=== PATIENT | male | born 1970 | race Caucasian/White ===

== ENCOUNTER 2017-07-08 10:09 | Inpatient (IN) ==
[2017-07-08] MEDS ORDERED: *HR* HYDROcodone/Acet 5/325 mg TABLET PO PRN (13:26)
[2017-07-08] MEDS ORDERED: Naloxone 0.4 MG/ML INJ IVP PRN (13:26)
[2017-07-08] MEDS ORDERED: *HR* Morphine 2 MG/ML SYRINGE IVP PRN (13:26)
[2017-07-08] MEDS ORDERED: Ondansetron 4 MG/2 ML VIAL IVP PRN (13:26)
[2017-07-08] MEDS ORDERED: Acetaminophen 325 MG TABLET PO PRN (13:26)
[2017-07-08 13:40] LABS: Basophils # 0.1 K/mcL (0.0-0.2); Basophils % 0.7 %; Eosinophils % 0.3 %; Hematocrit 45.4 % (37.5-50.1); Hemoglobin 15.3 g/dL (12.9-16.9); Immature Granulocytes % 0.3 % (0-4); Lymphocytes # 1.9 K/mcL (0.6-4.6); Lymphocytes % 28.5 %; Mean Corpuscular HGB Conc 33.7 g/dL (31.6-35.5); Mean Corpuscular Hemoglobin 30.2 pg (28.0-33.3); Mean Corpuscular Volume 89.5 fL (83.0-100.0); Mean Platelet Volume 10.8 fL (9.4-12.4); Monocytes # 0.5 K/mcL (0.0-1.3); Monocytes % 6.8 %; Neutrophils # 4.3 K/mcL (1.6-8.9); Platelet Count 219 K/mcL (140-400); Red Blood Count 5.07 M/mcL (4.19-5.50); Red Cell Distribution Width 12.9 % (11.5-14.5); Segmented Neutrophils % 63.4 %
[2017-07-08] MEDS ORDERED: Nitroglycerin 0.4 MG TAB.SUBL SL PRN (13:40)
--- NOTE | 2017-07-08 13:49 | Internal Med History&Physical ---
<Omar Barnhart - Last Filed: 07/08/17 18:08> Date of Encounter: 07/08/17 Time of Encounter: 13:00 Assessment and Plan (1) Chest pain Current visit: Yes Status: Acute Patient presents with left-sided CP that he states began this morning while he was at rest at work. Describes sharp, stabbing pain that radiated to his left shoulder blade and arm causing arm to go numb (now resolved). On examination, patient denies current CP or SOB. Patient has hx of MIs x6 and stent placement x6. ICD placed by Dr. Rojas in 07/2016. Last cardiac work-up done in 2015 prior to ICD placement. EKG today is unchaged from 04/02/17 and shows sinus rhythm with possible inferior myocardial infarction (probably old), moderate T- wave abnormality (consider anterolateral ischemia). Heparin drip started. Continuous cardiac telemetry. Aspirin therapy. Initial troponin here was 0.14. Trend troponins x2. Echocardiogram ordered. Cardiology consult placed. Qualifiers: Chest pain type: other chest pain Qualified Code(s): R07.89 - Other chest pain; R07.8 - Other chest pain (2) Elevated troponin Current visit: Yes Status: Acute Initial troponin here on admission is 0.14. Patient states troponin at [facility] prior to transfer was 0.11. Will trend troponins x2. Patient denies SOB or CP on examination and denies any distress. Heparin drip started. Continuous cardiac telemetry. SL Nitroglycerin PRN. Continue aspirin therapy daily. (3) SVT (supraventricular tachycardia) Current visit: Yes Status: Acute Patient presents with report of HR of 140-150 bpm this morning while resting at work. SVT versus atrial fibrillation. Continue metoprolol and increase from 50 mg to 75 mg and hold lisinopril per cardiology due to current hypotension and to allow for increase in metoprolol dosing. Monitor via continuous telemetry. (4) Dizziness Current visit: Yes Status: Acute Patient reports dizziness with positional changes. Orthostatic BPs and VS ordered. Falls/safety precautions ordered and discussed with patient who confirmed understanding. (5) Tobacco abuse counseling Current visit: Yes Status: Acute Patient currently smokes 1 PPD. Refused nicotine patch. Patient counseled >10 minutes regarding the dangers of tobacco on his current health status, especially his hx of MIs x6 and current CP. Methods for quitting also discussed. Patient verified understanding and expressed interest in quitting due to his current health status. (6) HTN (hypertension) Current visit: Yes Status: Chronic Hx of chronic HLD. Lipid panel ordered in a.m. labs. Continue Lipitor. Qualifiers: Hypertension type: essential hypertension Qualified Code(s): I10 - Essential (primary) hypertension (7) HLD (hyperlipidemia) Current visit: Yes Status: Chronic Hx of chronic HTN. Monitor patient and VS and continue patient's lisinopril, Imdur, and Coreg. Qualifiers: Hyperlipidemia type: pure hypercholesterolemia Qualified Code(s): E78.00 - Pure hypercholesterolemia, unspecified; E78.0 - Pure hypercholesterolemia (8) CAD (coronary artery disease) Current visit: Yes Status: Chronic Hx of CAD. Patient on continuous cardiac telemetry. Will continue lisinopril, Imdur, Plavix, Coreg, Lipitor, and aspirin therapy. Qualifiers: Coronary Disease-Associated Artery/Lesion type: [place] artery [place] vs. transplanted heart: [place] heart Associated angina: without angina Qualified Code(s): I25.10 - Atherosclerotic heart disease of [place] coronary artery without angina pectoris (9) Ischemic cardiomyopathy Current visit: Yes Status: Chronic Hx. of chronic ischemic cardiomyopathy. Continue lisinopril, Imdur, Plavix, Coreg, Lipitor, and aspirin therapy. (10) DVT prophylaxis Current visit: Yes Status: Acute Patient placed on heparin drip for elevated troponin/CP. Monitor patient for signs of unusual bleeding. Internal Medicine - H&P: HPI Chief complaint: Chest pain/Dizziness Admitted From: Hospital to Hospital Transfer Plans for Post Hospital Care: Home History of present illness: Mr. Maddox is a 47 year old male with medical history of CAD, ischemic cardiomyopathy, ICD placement HTN, HLD, and previous [place] x6 with six-stent placement presents from [facility] with chief complaint of chest pain with dizziness which he states began this morning at work when he was sitting and he became tachycardic with heart rate of 140-150 BPM . Patient described pain as sharp,stabbing left chest pain which radiated to his left shoulder and left arm causing his arm to become numb. Patient has a history of 6 MIs with placement of 6 stents and is followed by Dr. Rojas who placed his ICD in July 2016. Patient states he was given nitroglycerin while in the ambulance along with 281 mg aspirin which helped his chest pain. Patient denies recent cardiac work-up wit last being done in 2016 prior to ICD placement. Patient is current smoker smoking 1 PPD with interest in quitting. Patient reports chest pain and dizziness but denies recent illness, fever, chills, nausea, vomiting, abdominal pain, headache, changes in vision, unusual bleeding , SOB, cough, pre-syncope, or syncope. On admission, patient's vital signs included temperature of 97.9F, heart rate of 79 bpm, respiratory rate of 16, BP of 115/76, and SPO2 of 98% on 2 L of O2. Pertinent abnormal labs include APTT of 96.8 and troponin of 0.14. Patient states troponin at [facility] was 0.11. EKG today shows sinus rhythm with possible inferior myocardial infarction , probably old in moderate T-wave abnormality, consider anterolateral ischemia. EKG is unchanged from 04/02/17. 1-View CXR today shows no acute cardiopulmonary disease. Upon assessment, patient is alert and oriented 3 and states he is not currently experiencing chest pain at this time. Heart rate is RRR and lungs are clear bilaterally on auscultation. There is no pedal edema present, no abdominal pain, and patient states he is not short of breath. Patient is hemodynamically stable and reports no acute distress. Information taken from patient, chart review, and previous medical records. Mr. Maddox is at high risk for further cardiac events and morbidity based on current symptoms and previous history of MIs x6, CAD, HTN, HLD, and tobacco abuse and will be placed as inpatient status. Time spent with patient greater than 40 minutes. Past Med Surg Social Fam HX - Past Medical History Source: patient, old records reviewed Medical history: CHF, coronary artery disease, hyperlipidemia, hypertension, myocardial infarction (x6 with stent placement x6) Psychiatric history: no psych history - Past Surgical History Surgical History: angioplasty/stent, pacemaker/AICD - Social History Smoking Status: Current every day smoker Packs per day: 1 PPD Smokeless Tobacco Status: No Alcohol use: occasionally Drug use: none Occupational status: employed Current living situation: Home Activity Level: Independent ambulation, Very active Recent Out of Country Travel Within the Last 8 Weeks: No Exposure or Possible Exposure to Illness During Travel: No - Family History Mother Adopted: [place]: Olivia Maddox Age: 67 Race: Family Member Ethnicity: Non- Living Status: Still Living Hx Family Medical Disorders: No Father Adopted: [place]: Erlin Maddox Age: 67 Race: Family Member Ethnicity: Non- Living Status: Still Living Hx Family Cardiac Disorders: Yes (Mild [place] with stent x1) Sister Race: Family Member Ethnicity: Non- Living Status: Still Living Hx Family Cardiac Disorders: Yes (HTN) Internal Medicine - H&P: Meds Isosorbide MONOnitrate (24 HR) [Imdur] 60 mg PO DAILY 01/08/16 [History] Nitroglycerin [Nitrostat] 0.4 mg SL Q5M PRN 01/08/16 [History] Aspirin 81 mg PO DAILY tab.chew 01/12/16 [Rx] Metoprolol XL (24 HR) Succ [Toprol Xl] 50 mg PO DAILY #30 tab.er.24h 01/12/16 [ Rx] Lisinopril [Zestril] 5 mg PO DAILY 06/28/16 [History] Clopidogrel [Plavix] 75 mg PO DAILY #30 tablet 08/08/16 [Rx] Atorvastatin Calcium [Lipitor] 80 mg PO HS 07/08/17 [History] Loratadine [Claritin] 10 mg PO DAILY 07/08/17 [History] 3 Allergy/AdvReac Type Severity Reaction Status Date / Time Penicillins Allergy Anaphylaxis Verified 08/05/16 15:58 All Systems PM: A 10-system review of systems was performed and is negative for pertinent findings except as documented above in the HPI. - Constitutional Constitutional: no chills, no fever(s), no night sweats - EENT Eyes: no change in vision, no discharge, no pain, no photophobia Ears: no ear discharge, no ear pain, no tinnitus Nose, mouth and throat: no dysphagia, no nasal discharge, no neck pain, no sore throat - Breasts Breasts: as per HPI - Cardiovascular Cardiovascular ROS IM: as per HPI, chest pain (Left-sided with radiation to left arm (causing it to become numb) and left shoulder blade), lightheadedness - Respiratory Respiratory: no cough, no dyspnea, no wheezing, no excessive phlegm production - Gastrointestinal Gastrointestinal: no abdominal pain, no diarrhea, no hematemesis, no hematochezia, no melena, no nausea, no vomiting - Genitourinary Genitourinary ROS male: as per HPI - Musculoskeletal Musculoskeletal ROS IM: no numbness, no tingling - Integumentary Integumentary IM: no rash, no unusual bruising - Neurological Neurological ROS: no confusion, no convulsions, no focal weakness, no numbness, no tingling, no tremor(s) - Psychiatric Psychiatric: as per HPI - Endocrine Endocrine IM: as per HPI - Hematologic/Lymphatic Hematologic/Lymphatic: no easy bruising - Allergic/Immunologic Allergic/Immunologic: as per HPI - Constitutional Vitals: Temp Pulse Resp BP Pulse Ox 97.9 F 79 16 115/76 97 07/08/17 12:22 07/08/17 12:22 07/08/17 12:22 07/08/17 12:22 07/08/17 12:45 General appearance: Present: cooperative, A&O X 3, pleasant, no acute distress, answers questions appropriately - Head Head exam: Present: atraumatic, normocephalic - Eye Eye exam: Present: PERRL, conjuntiva pink, sclera anicteric Pupils: Present: PERRL - ENT ENT exam: Present: normal exam, normal external ear exam - Neck Neck exam general surgery: Present: normal inspection, supple, trachea midline. Absent: lymphadenopathy - Respiratory Respiratory exam: Present: CTAB. Absent: accessory muscle use, rales, rhonchi, wheezes - Cardiovascular Cardiovascular exam: Present: RRR, +S1, +S2. Absent: diastolic murmur, gallop, rubs, systolic murmur - GI/Abdominal GI/Abdominal exam: Present: normal bowel sounds, soft, no peritoneal signs. Absent: distended, tenderness - Rectal Rectal exam: Present: deferred - Additional comments: exam deferred. - Extremities Exam Extremities exam: Present: warm, radial pulses palpable and symmetrical. Absent : calf tenderness, cyanotic, pedal edema - Back Exam Back exam: Present: normal inspection - Neurological Exam Neurological exam: Present: CN II-XII intact, oriented X3, no focal deficits. Absent: pronater drift, facial droop, speech deficit - Psychiatric Psychiatric exam: Present: flat affect - Skin Skin exam: Present: dry, intact Internal Med - H&P Results - Labs CBC & Chem 7: 07/08/17 13:25 07/08/17 13:25 - EKG Data EKG shows normal: sinus rhythm - EKG Data Prior EKG available for review: yes When compared to previous EKG: there is no significant change Interpretation IM: suggestive of ischemia EKG comments: 07/08/17 14:02 EKG dated 04/02/17 shows normal sinus rhythm with anterior infarct cited on or before on 08/15/13, T-wave abnormality, consider lateral ischemia. EKG dated 07/08/17 shows sinus rhythm with possible inferior myocardial infarction, probably old and moderate T-wave abnormality, consider anterolateral ischemia. - Impressions ITS Impressions Chest X-Ray 07/08/17 13:02 IMPRESSION: No acute cardiopulmonary disease. D/ / Tommy Perez MD / oTmmy Perez MD Interpreting Provider: Tommy Perez MD - Diagnostic Studies Chest x-ray Additional comments: Impressions Chest X-Ray 07/08/17 13:02 IMPRESSION: No acute cardiopulmonary disease. D/ / Tommy Perez MD / Tommy Perez MD Interpreting Provider: Tommy Perez MD <August Morales - Last Filed: 07/08/17 19:58> Date of Encounter: 07/08/17 Internal Medicine - H&P: HPI History of present illness: Mr. Maddox is a 47 year old male All Systems PM: A 10-system review of systems was performed and is negative for pertinent findings except as documented above in the HPI. - Constitutional Vitals: Temp Pulse Resp BP Pulse Ox 97.8 F 64 17 114/80 97 07/08/17 15:43 07/08/17 15:43 07/08/17 15:43 07/08/17 15:43 07/08/17 15:43 Internal Med - H&P Results - Labs CBC & Chem 7: 07/08/17 13:25 07/08/17 13:25 Labs: Short CBC 07/08/17 Range/Units 13:25 WBC 6.8 (4.3-11.1) K/mcL Hgb 15.3 (12.9-16.9) g/dL Hct 45.4 (37.5-50.1) % Plt Count 219 (140-400) K/mcL Neutrophils # 4.3 (1.6-8.9) K/mcL BMP 07/08/17 13:25 Sodium 139 Potassium 3.6 Chloride 105 Carbon Dioxide 26 BUN 10 Creatinine 0.87 Glucose 97 Calcium 9.0 Cardiac Enzymes 07/08/17 Range/Units 13:25 Troponin I 0.14 H* (0-0.03) ng/mL Liver Function 07/08/17 Range/Units 13:25 Total Bilirubin 0.3 (0.2-1.2) mg/dL AST 20 (5-34) Units/L ALT 21 (0-55) Units/L Alkaline Phosphatase 93 (38-126) Units/L Albumin 3.6 (3.5-5.0) g/dL - Impressions ITS Impressions Chest X-Ray 07/08/17 13:02 IMPRESSION: No acute cardiopulmonary disease. D/ / Tommy Perez MD / Tommy Perez MD Interpreting Provider: Tommy Perez MD - Attending Attestation I independently obtained history and examined this patient and my medical decision-making was reviewed with the nurse practitioner. I agree with the documented findings, disposition and treatment plan as described. My findings are summarized below: Patient is in no acute distress awake alert oriented. Heart is regular. Lungs are clear. Plan: We will continue with heparin drip for non-STEMI. Trend troponin. Continue cardiac monitoring. Consult cardiology. Nothing by mouth past midnight. He is at high risk for morbidity, mortality and complications due to IV heparin which requires intensive monitoring of coagulation parameters.
[2017-07-08 13:54] LABS: Alanine Aminotransferase 21 Units/L (0-55); Albumin 3.6 g/dL (3.5-5.0); Albumin/Globulin Ratio 1.2 (1.1-2.2); Alkaline Phosphatase 93 Units/L (38-126); Aspartate Amino Transferase 20 Units/L (5-34); BUN/Creatinine Ratio 11 (6-26); Bilirubin,Total 0.3 mg/dL (0.2-1.2); Blood Urea Nitrogen 10 mg/dL (8-26); Carbon Dioxide 26 mEq/L (19-29); Chloride 105 mEq/L (98-109); Globulin 3.1 g/dL (2.4-3.5); Glucose 97 mg/dL (70-99); Osmolality,Calculated 287 (280-300); Potassium 3.6 mEq/L (3.5-4.5); Sodium 139 mEq/L (136-145); Total Protein 6.7 g/dL (6.0-8.3); eGFR For African Americans > 60 (> 60); eGFR For Non-African Americans > 60 (> 60)
--- NOTE | 2017-07-08 15:08 | Cardiology Consult Note ---
Date of Encounter: 07/08/17 Time of Encounter: 15:06 Assessment and Plan (1) Elevated troponin Current Visit: Yes Status: Acute Troponin elevation up to 0.14. Continue to trend troponin. Demand ischemia in the setting of SVT with HR up to 150 bpm vs NSTEMI. Agree with heparin gtt. Continue asa, plavix, statin, and bb. He is currently pain free. (2) SVT (supraventricular tachycardia) Current Visit: Yes Status: Acute Patient has single chamber ICD. Device check shows SVT with HR up to 150 bpm. Will need to monitor to see if afib or SVT. Continue to monitor telemetry. Missed doses of toprol yesterday. Restart toprol XL. Unable to increase further due to low blood pressure. Will hold lisinopril to allow for increase in metorpolol. (3) Chest pain Current Visit: Yes Status: Acute Typical chest pain symptoms. Pain associated with SVT. Continue to monitor. Qualifiers: Chest pain type: other chest pain Qualified Code(s): R07.89 - Other chest pain; R07.8 - Other chest pain (4) CAD (coronary artery disease) Current Visit: Yes Status: Chronic H/o 6 mi and multiple PCI. Last [facility] 12/2015-a 50% stenosis in the LMCA. 30% stenosis in the Proximal LAD. There is a 30 mm long, 70% stenosis in the Mid LAD- FFR 0.73. PTCA and Deonte placed with good results. 100% stenosis in the 1st Diagonal which fills via left to left collaterals. 20% stenosis in the Proximal Circumflex. 50% stenosis in the 1st Marginal. 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 R PDA fills via L to R collaterals. Continue asa, statin, beta-millicent, and plavix. Qualifiers: Coronary Disease-Associated Artery/Lesion type: [place] artery [place] vs. transplanted heart: [place] heart Associated angina: without angina Qualified Code(s): I25.10 - Atherosclerotic heart disease of [place] coronary artery without angina pectoris (5) Ischemic cardiomyopathy Current Visit: Yes Status: Chronic EF 04/2016 30-35%. Underwent single chamber medtronic ICD placement after that. Currently euvolemic. Continue beta-millicent. Hold tiger-inhibitor. Low sodium diet. Daily weights. (6) Tobacco abuse Current Visit: No Status: Chronic Smoking cessation. Discussion w patient/family: The assessment and plan as outlined above was discussed with the patient and/or family members who expressed understanding and agreement. All questions were answered. Thank you for involving us in the care of your patient. Please call with any questions. History of Present Illness Consult date: 07/08/17 Requesting physician: Erasmo Proctor Consult reason: Elevated troponin Chief complaint: Chest pain History of present illness: Mr. Maddox is a 46 year old male with a relevant past medical history of multiple TX and PCI, ischemic cardiomyopathy, S/P single lead ICD placement in 2016, hypertension, hyperlipidemia, DVT on xarelto, nicotine abuse who presents from his work with the C/o elevated heart rate in the 140's associated with left sided chest pain. He was taken to [facility]. His was given one SLN with relief of his pain. He denies SOB, edema, or orthopnea. Denies N/V, or diaphoresis. He is currently pain free. Past Med Surg Social Fam HX - Past Medical History Medical history: cardiomyopathy, coronary artery disease, hyperlipidemia, hypertension, myocardial infarction (x6 with stent placement x6) Psychiatric history: no psych history - Past Surgical History Surgical History: angioplasty/stent, pacemaker/AICD - Social History Smoking Status: Current every day smoker Packs per day: 1 PPD Smokeless Tobacco Status: No Alcohol use: occasionally Drug use: none - Family History Sister Race: Family Member Ethnicity: Non- Living Status: Still Living Hx Family Cardiac Disorders: Yes (HTN) Mother Adopted: [place]: Olivia Maddox Age: 67 Race: Family Member Ethnicity: Non- Living Status: Still Living Hx Family Cardiac Disorders: Yes (CHF, bypass) Hx Family Respiratory Disorders: No Hx Family Cancer: No Hx Family GI Disorders: No Hx Family Genitourinary Disorders: No Hx Family Endocrine Disorder: No Hx Family Musculoskeletal Disorders: No Hx Family Neuromuscular Disorders: No Hx Family Neurologic Disorders: No Hx Family HEENT Disorders: No Hx Family Autoimmune Disorders: No Hx Family Reproductive Disorders: No Hx Family Psychosocial Disorders: No Hx Family Medical Disorders: No Father Adopted: [place]: Erlin Maddox Age: 67 Race: Family Member Ethnicity: Non- Living Status: Still Living Hx Family Cardiac Disorders: Yes (Mild [place] with stent x1) Hx Family Respiratory Disorders: No Hx Family Cancer: No Hx Family GI Disorders: No Hx Family Genitourinary Disorders: No Hx Family Endocrine Disorder: No Hx Family Musculoskeletal Disorders: No Hx Family Neuromuscular Disorders: No Hx Family Neurologic Disorders: No Hx Family HEENT Disorders: No Hx Family Autoimmune Disorders: No Hx Family Reproductive Disorders: No Hx Family Psychosocial Disorders: No Hx Family Medical Disorders: No Medications and Allergies Isosorbide MONOnitrate (24 HR) [Imdur] 60 mg PO DAILY 01/08/16 [History] Nitroglycerin [Nitrostat] 0.4 mg SL PRN PRN 01/08/16 [History] Aspirin 81 mg PO DAILY tab.chew 01/12/16 [Rx] Metoprolol XL (24 HR) Succ [Toprol Xl] 50 mg PO DAILY #30 tab.er.24h 01/12/16 [ Rx] Lisinopril [Zestril] 5 mg PO DAILY 06/28/16 [History] Carvedilol [Coreg] 6.25 mg PO BID 08/05/16 [History] Ranolazine [Ranexa] 500 mg PO BID 08/05/16 [History] Rivaroxaban [Xarelto] 15 mg PO BID 08/05/16 [History] Atorvastatin Calcium [Lipitor] 80 mg PO DAILY #30 tablet 08/08/16 [Rx] Clopidogrel [Plavix] 75 mg PO DAILY #30 tablet 08/08/16 [Rx] Rivaroxaban [Xarelto] 15 mg PO BID #60 tablet 08/08/16 [Rx] 3 Allergy/AdvReac Type Severity Reaction Status Date / Time Penicillins Allergy Anaphylaxis Verified 08/05/16 15:58 All Systems Review: A 10-system review of systems was performed and is negative for pertinent findings except as documented above in the HPI. Physical Examination Vital Signs, Last 4 Hours Temp Pulse Resp BP Pulse Ox 07/08/17 12:45 97 07/08/17 12:22 97.9 F 79 16 115/76 98 General: Conversant, No Apparent Distress HEENT: Atraumatic, Normocephaly, Mucus Membranes Moist Neck: No JVD, Normal carotid pulses Cardiac: Reg Rate and Rhythm, Normal S1 and S2, No Murmur Lungs: Normal Breath Sounds, No Wheeze, Rales, Rhonchi Neuro: Alert and responsive, No focal deficits noted Abdomen: Soft, Non-Tender Skin: No rashes noted on visualized skin Musculoskeletal: No Chest Wall Tenderness Extremities: No Clubbing, No Cyanosis, No Edema, Normal Pulses Results 07/08/17 13:25 07/08/17 13:25 Lab Results 07/08/17 07/08/17 07/08/17 13:25 13:25 13:25 WBC 6.8 Hgb 15.3 Hct 45.4 Plt Count 219 APTT D-Dimer Sodium 139 Potassium 3.6 Chloride 105 Carbon Dioxide 26 BUN 10 Creatinine 0.87 Glucose 97 Calcium 9.0 Total Bilirubin 0.3 AST 20 ALT 21 Alkaline Phosphatase 93 Troponin I 0.14 H* 07/08/17 07/08/17 13:25 13:25 WBC Hgb Hct Plt Count APTT 96.8 H D-Dimer 346 Sodium Potassium Chloride Carbon Dioxide BUN Creatinine Glucose Calcium Total Bilirubin AST ALT Alkaline Phosphatase Troponin I - Imaging and Cardiology Stress Test: report reviewed Echo: report reviewed Cardiac cath: report reviewed Consult Discharge Plan - Plan Referrals: NONE,PCP [Primary Care Provider] -
[2017-07-08] MEDS: Pantoprazole 40 MG VIAL IVP SCH (15:35)
[2017-07-08] MEDS ORDERED: *HR* Heparin 5,000 UNIT/ML VIAL IVP PRN ×2 (15:46)
[2017-07-08] MEDS ORDERED: Heparin 25,000 UNIT/500 ML D5W 25,000 UNIT/500 ML MLS IVC SCH (16:00)
[2017-07-08] MEDS ORDERED: Metoprolol XL (24 HR) Succ 50 MG TAB.ER.24H PO ONE (18:43)
[2017-07-09 01:28] LABS: Basophils # 0.1 K/mcL (0.0-0.2); Basophils % 0.7 %; Eosinophils # 0.1 K/mcL (0.0-0.6); Eosinophils % 1.3 %; Hematocrit 44.5 % (37.5-50.1); Hemoglobin 15.7 g/dL (12.9-16.9); Immature Granulocytes % 0.1 % (0-4); Lymphocytes # 2.5 K/mcL (0.6-4.6); Lymphocytes % 36.8 %; Mean Corpuscular HGB Conc 35.3 g/dL (31.6-35.5); Mean Corpuscular Hemoglobin 31.8 pg (28.0-33.3); Mean Corpuscular Volume 90.3 fL (83.0-100.0); Mean Platelet Volume 10.6 fL (9.4-12.4); Monocytes # 0.6 K/mcL (0.0-1.3); Monocytes % 9.4 %; Neutrophils # 3.5 K/mcL (1.6-8.9); Platelet Count 204 K/mcL (140-400); Red Blood Count 4.93 M/mcL (4.19-5.50); Red Cell Distribution Width 13.1 % (11.5-14.5); Segmented Neutrophils % 51.7 %
[2017-07-09 02:01] LABS: Alanine Aminotransferase 17 Units/L (0-55); Albumin 3.2 g/dL (3.5-5.0); Alkaline Phosphatase 88 Units/L (38-126); Aspartate Amino Transferase 19 Units/L (5-34); BUN/Creatinine Ratio 13 (6-26); Bilirubin,Total 0.3 mg/dL (0.2-1.2); Blood Urea Nitrogen 12 mg/dL (8-26); Calcium 8.8 mg/dL (8.6-10.8); Carbon Dioxide 25 mEq/L (19-29); Chloride 106 mEq/L (98-109); Chol/HDL Ratio 3.8 (0-4.9); Cholesterol 173 mg/dL (< 200); Globulin 3.1 g/dL (2.4-3.5); Glucose 67 mg/dL (70-99); HDL Cholesterol 45 mg/dL (40-59); Hemoglobin A1C 5.2 %; LDL Cholesterol,Calculated 102 mg/dL (0-99); Magnesium 2.1 mg/dL (1.6-2.6); Osmolality,Calculated 288 (280-300); Potassium 3.8 mEq/L (3.5-4.5); Sodium 140 mEq/L (136-145); Total Protein 6.3 g/dL (6.0-8.3); Triglycerides 129 mg/dL (< 150); eGFR For African Americans > 60 (> 60); eGFR For Non-African Americans > 60 (> 60)
[2017-07-09] MEDS: Pantoprazole 40 MG VIAL IVP SCH (08:42)
[2017-07-09] MEDS ORDERED: Aspirin Enteric Coated 81 MG Tablet PO SCH (09:00)
[2017-07-09] MEDS ORDERED: Loratadine 10 MG TABLET PO SCH (09:00)
[2017-07-09] MEDS ORDERED: Aspirin 81 MG TAB.CHEW PO SCH (09:00)
[2017-07-09] MEDS ORDERED: Isosorbide MONOnitrate (24 HR) 60 MG TAB.ER.24H PO SCH (09:00)
[2017-07-09] MEDS ORDERED: Metoprolol XL (24 HR) Succ 50 MG TAB.ER.24H PO SCH (09:00)
[2017-07-09] MEDS ORDERED: Metoprolol XL (24 HR) Succ 25 MG TAB.ER.24H PO SCH (09:00)
[2017-07-09 11:26] VITALS: BP 98/69
[2017-07-09] MEDS ORDERED: FLUARIX QUAD 2017-18 36MOS UP/PF 0.5 ML SYRINGE IM ONE (12:42)
--- NOTE | 2017-07-09 12:56 | Discharge Summary ---
Date of Encounter: 07/09/17 Time of Encounter: 12:54 - Discharge Diagnosis (1) SVT (supraventricular tachycardia) Priority: Primary Status: Acute (2) Ischemic cardiomyopathy Priority: Secondary Status: Chronic (3) CAD (coronary artery disease) Priority: Secondary Status: Chronic Qualifiers: Coronary Disease-Associated Artery/Lesion type: [place] artery [place] vs. transplanted heart: [place] heart Associated angina: without angina Qualified Code(s): I25.10 - Atherosclerotic heart disease of [place] coronary artery without angina pectoris (4) HTN (hypertension) Priority: Secondary Status: Chronic Qualifiers: Hypertension type: essential hypertension Qualified Code(s): I10 - Essential (primary) hypertension (5) HLD (hyperlipidemia) Priority: Secondary Status: Chronic Qualifiers: Hyperlipidemia type: mixed hyperlipidemia Qualified Code(s): E78.2 - Mixed hyperlipidemia (6) Tobacco abuse Priority: Secondary Status: Chronic - Discharge Medications Prescriptions: Metoprolol XL (24 HR) Succ [Toprol Xl] 25 mg PO DAILY #30 tab.er.24h Home Medications: Isosorbide MONOnitrate (24 HR) [Imdur] 60 mg PO DAILY 01/08/16 [History] Nitroglycerin [Nitrostat] 0.4 mg SL Q5M PRN 01/08/16 [History] Aspirin 81 mg PO DAILY tab.chew 01/12/16 [Rx] Metoprolol XL (24 HR) Succ [Toprol Xl] 50 mg PO DAILY #30 tab.er.24h 01/12/16 [ Rx] Clopidogrel [Plavix] 75 mg PO DAILY #30 tablet 08/08/16 [Rx] Atorvastatin Calcium [Lipitor] 80 mg PO HS 07/08/17 [History] Loratadine [Claritin] 10 mg PO DAILY 07/08/17 [History] Metoprolol XL (24 HR) Succ [Toprol Xl] 25 mg PO DAILY #30 tab.er.24h 07/09/17 [ Rx] Allergies/Adverse Reactions: 3 Allergy/AdvReac Type Severity Reaction Status Date / Time Penicillins Allergy Anaphylaxis Verified 08/05/16 15:58 Procedures/tests Complete & Pending: Procedures Performed prior 72 hours Category Date Time Status EV echocardiogram Routine Y 07/08/17 13:32 Completed Date of admission: 07/09/17 07:40 Primary care physician: PCP NONE Consults: 07/08/17 14:16 Consult to Cardiology [CONS] Routine Comment: Consulting Provider: Cardiology Layne Reason for Consult: Patient with hx of CT x6 and stent placement x6 presents with left-sided CP that radiated to left shoulder and arm. Given nitro and 81 mg aspirin x2 which he states helped. Initial trop at [place] 0.11. Trop here 0.14. Denies CP currently or SOB. Transfer pt from [facility]. AICD placement her by Dr. Rojas in 07/2016 when last cardiac work-up done. Echocardiogram ordered. Pt. on heparin drip. Call Completed: Yes Discharging clinician: Erasmo Proctor Anticipated date of discharge: 07/09/17 - Patient Status Disposition: Home, Self-Care Condition: Good Functional capacity at discharge: independent ambulation Overall status at discharge: patient is progressing back to baseline - Discharge Instructions Follow Up With: NONE,PCP [Primary Care Provider] - - Diet and Activity Activity: increase activity as tolerated Diet: advance to your usual diet Hospital course: Mr. Maddox is a 47 year old male with hx of ischemic cardiomyopathy transferred from another hospital due to chest pain. He had stabbing chest pain and L arm numb feeling. Initial troponin was elevated and he was transferred for admission. Mr Maddox was admitted to [facility]. He was placed on heparin drip due to concern for NSTEMI. He had serial troponin levels which were essentially unchanged. His AICD was interrogated and he had SVT noted. His beta millicent was increased and Lisinopril stopped. On 07/09/17 he was afebrile with stable vitals. He was ambulating around the floor without difficulty. At that time he was felt stable for discharge home. Time spent discussing smoking cessation with patient: 3 to 10 minutes - Time Spent with Patient Total time spent providing and/or coordinating discharge services: 38min - Constitutional Vitals: Temp Pulse Resp BP Pulse Ox 97.8 F 58 16 98/69 98 07/09/17 11:25 07/09/17 11:25 07/09/17 11:25 07/09/17 11:25 07/09/17 11:25 General appearance: Present: cooperative, A&O X 3, pleasant, answers questions appropriately - Head Head exam: Present: normocephalic - Eye Eye exam: Present: EOMI, conjuntiva pink - ENT ENT exam: Present: mucous membranes moist - Respiratory Respiratory exam: Present: CTAB. Absent: rales, rhonchi, wheezes - Cardiovascular Cardiovascular exam: Present: RRR. Absent: tachycardia - GI/Abdominal GI/Abdominal exam: Present: soft. Absent: tenderness - Extremities Exam Extremities exam: Present: warm. Absent: tenderness - Neurological Exam Neurological exam: Present: alert, oriented X3, no focal deficits
--- NOTE | 2017-07-09 13:16 | Cardiology Progress Note ---
Date of Encounter: 07/09/17 Time of Encounter: 13:00 Assessment and Plan (1) Elevated troponin Current Visit: Yes Status: Acute Troponin elevation 0.11, 0.14, 0.11, 0.10. Adynamic elevation likely demand ischemia in the setting of SVT with HR up to 150 bpm. Discontinue heparin gtt. TTE shows EF 30-35%. No change from, 04/2017. Continue asa, plavix, statin, and bb. He is currently pain free. No further cardiac testing at this time. Continue treatment of SVT. (2) SVT (supraventricular tachycardia) Current Visit: Yes Status: Acute Patient has single chamber ICD. Device check shows SVT with HR up to 150 bpm. Will need to monitor to see if afib or SVT. Continue to monitor telemetry. Missed doses of toprol prior to symptoms. Toprol XL restarted and increased. B/p 98/50-100/60. HR occasionally in the upper 50's. Denies dizziness or lightheadedness ambulating in hallway. Continue toprol xl at 75 mg daily. Hold zestril for hypotension. (3) Chest pain Current Visit: Yes Status: Acute Chest pain likely secondary to SVT. See plan above. Qualifiers: Qualified Code(s): R07.89 - Other chest pain; R07.8 - Other chest pain (4) CAD (coronary artery disease) Current Visit: Yes Status: Chronic H/o six previous NH and multiple PCI. Last [facility] 12/2015-a 50% stenosis in the LMCA. 30% stenosis in the Proximal LAD. There is a 30 mm long, 70% stenosis in the Mid LAD- FFR 0.73. PTCA and Deonte placed with good results. 100% stenosis in the 1st Diagonal which fills via left to left collaterals. 20% stenosis in the Proximal Circumflex. 50% stenosis in the 1st Marginal. 100% stenosis in the Proximal RCA [employer]. R PDA fills via L to R collaterals. Continue asa, statin, beta-millicent, and plavix. Qualifiers: Qualified Code(s): I25.10 - Atherosclerotic heart disease of [place] coronary artery without angina pectoris (5) Ischemic cardiomyopathy Current Visit: Yes Status: Chronic EF 04/2016 30-35%. Underwent single chamber medtronic ICD placement after that. Currently euvolemic. Repeat TTE shows EF unchanged. Continue beta-millicent. Hold tigre-inhibitor for hypotension. Low sodium diet. Daily weights. (6) Tobacco abuse Current Visit: No Status: Chronic Smoking cessation discussed. Patient is not ready to quit. Discussion w patient/family: The assessment and plan as outlined above was discussed with the patient and/or family members who expressed understanding and agreement. All questions were answered. Thank you for involving us in the care of your patient. Please call with any questions. Subjective Principal diagnosis: SVT Interval history: Mr. Maddox states that he is feeling better. Denies recurrent chest pain. Denies palpitations. He is ambulating in the hallway with no difficulty. Objective Vital Signs, Last 4 Hours Temp Pulse Resp BP Pulse Ox 07/09/17 11:25 97.8 F 58 16 98/69 98 General: Conversant, No Apparent Distress HEENT: Atraumatic, Normocephaly, Mucus Membranes Moist Neck: No JVD, Normal carotid pulses Cardiac: Reg Rate and Rhythm, Normal S1 and S2, No Murmur Lungs: Normal Breath Sounds, No Wheeze, Rales, Rhonchi Neuro: Alert and responsive, No focal deficits noted Abdomen: Soft, Non-Tender Skin: No rashes noted on visualized skin Musculoskeletal: No Chest Wall Tenderness Extremities: No Clubbing, No Cyanosis, No Edema, Normal Pulses Results 07/09/17 01:17 07/09/17 01:17 Lab Results 07/08/17 07/08/17 07/08/17 13:25 13:25 13:25 WBC 6.8 Hgb 15.3 Hct 45.4 Plt Count 219 APTT D-Dimer Sodium 139 Potassium 3.6 Chloride 105 Carbon Dioxide 26 BUN 10 Creatinine 0.87 Glucose 97 Calcium 9.0 Magnesium Total Bilirubin 0.3 AST 20 ALT 21 Alkaline Phosphatase 93 Troponin I 0.14 H* 07/08/17 07/08/17 07/08/17 13:25 13:25 15:28 WBC Hgb Hct Plt Count APTT 96.8 H 85.0 H D-Dimer 346 Sodium Potassium Chloride Carbon Dioxide BUN Creatinine Glucose Calcium Magnesium Total Bilirubin AST ALT Alkaline Phosphatase Troponin I 07/08/17 07/08/17 07/09/17 20:57 20:57 01:17 WBC Hgb Hct Plt Count APTT 70.3 H D-Dimer Sodium Potassium Chloride Carbon Dioxide BUN Creatinine Glucose Calcium Magnesium Total Bilirubin AST ALT Alkaline Phosphatase Troponin I 0.10 H* 0.11 H* 07/09/17 07/09/17 01:17 01:17 WBC 6.8 Hgb 15.7 Hct 44.5 Plt Count 204 APTT D-Dimer Sodium 140 Potassium 3.8 Chloride 106 Carbon Dioxide 25 BUN 12 Creatinine 0.92 Glucose 67 L Calcium 8.8 Magnesium 2.1 Total Bilirubin 0.3 AST 19 ALT 17 Alkaline Phosphatase 88 Troponin I - Imaging and Cardiology Echo: report reviewed - EKG Interpretation EKG results cardiology: personally reviewed Consult Discharge Plan - Plan Instructions: Chest Pain (DC) Referrals: Carlee Lamas CONSTRUCTION HELPER [Advanced Practice Nurse] - NONE,PCP [Primary Care Provider] - Prescriptions: Metoprolol XL (24 HR) Succ [Toprol Xl] 25 mg PO DAILY #30 tab.er.24h
== END 2017-07-09 13:50 | disposition home or self-care (01) | DRG 309 ==
LOC: 2NENU
PROVIDERS: ADMIT Internal Medicine; ATTEND Internal Medicine

== ENCOUNTER 2017-07-26 18:40 | Observation (INO) ==
[2017-07-27] MEDS ORDERED: Ondansetron ODT 4 MG TAB.RAPDIS SL PRN (00:44)
[2017-07-27] MEDS ORDERED: Acetaminophen 325 MG TABLET PO PRN (00:44)
[2017-07-27] MEDS ORDERED: Naloxone 0.4 MG/ML INJ IVP PRN (00:44)
[2017-07-27] MEDS ORDERED: Nitroglycerin 0.4 MG TAB.SUBL SL PRN (00:48)
--- NOTE | 2017-07-27 00:53 | Internal Med History&Physical ---
Date of Encounter: 07/27/17 Time of Encounter: 00:50 Assessment and Plan (1) Palpitations Current visit: No Status: Acute Although patient is a longer having palpitations, repeat EKGs did demonstrate T- wave inversions in V4 with deepening inversions in V5 and V6 He was started on heparin drip at [place] [facility] and we will continue here until he can be seen by cardiology Initial troponins were negative, but we will trend these Continue his rate control medications with Toprol 75 mg daily (2) CAD (coronary artery disease) Current visit: No Status: Chronic Not currently experiencing chest pain and initial troponins were negative We will continue home dual antiplatelet therapy with aspirin and Plavix, statin , beta millicent, ACEi Qualifiers: Coronary Disease-Associated Artery/Lesion type: [place] artery [place] vs. transplanted heart: [place] Associated angina: without angina Qualified Code(s): I25.10 - Atherosclerotic heart disease of [place] coronary artery without angina pectoris (3) HLD (hyperlipidemia) Current visit: No Status: Chronic Continue statins as above Qualifiers: Hyperlipidemia type: mixed hyperlipidemia Qualified Code(s): E78.2 - Mixed hyperlipidemia (4) HTN (hypertension) Current visit: No Status: Chronic Continue beta millicent and lisinopril as above Qualifiers: Hypertension type: essential hypertension Qualified Code(s): I10 - Essential (primary) hypertension (5) Ischemic cardiomyopathy Current visit: No Status: Chronic Management as above with home medications He had an echocardiogram on 07/08/17 which showed EF of 30-35% (6) DVT prophylaxis Current visit: No Status: Acute Currently on heparin drip Internal Medicine - H&P: HPI Chief complaint: palpitations Admitted From: Home Plans for Post Hospital Care: Home History of present illness: Mr. Maddox is a 47 year old male who presented to [place] [facility] for palpitations. He has a significant cardiac history including 6 stents and has an AICD, and was recently admitted to weeks ago for SVT where his beta blockers were increased. 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 While going to the bathroom he experienced palpitations, facial numbness and measure his blood pressure which was 180/120. He states that his palpitations and numbness have since resolved. He denied any chest pain, shortness of breath, nausea, vomiting, diaphoresis, fever, chills. Patient believes that his symptoms were exacerbated by anxiety, although he has never been formally diagnosed with it. He does not feel any shocks from his defibrillator. Past Med Surg Social Fam HX - Past Medical History Medical history: CHF, coronary artery disease, hyperlipidemia, hypertension, myocardial infarction Psychiatric history: no psych history - Past Surgical History Surgical History: angioplasty/stent, pacemaker/AICD - Social History Smoking Status: Current every day smoker Packs per day: 1/2 Smokeless Tobacco Status: No Alcohol use: occasionally Drug use: none - Family History Sister Family Member Ethnicity: Non- Living Status: Still Living Hx Family Cardiac Disorders: Yes (HTN) Mother Adopted: No Family Member Ethnicity: Non- Living Status: Still Living Hx Family Cardiac Disorders: Yes (CHF, bypass) Hx Family Respiratory Disorders: No Hx Family Cancer: No Hx Family GI Disorders: No Hx Family Endocrine Disorder: No Hx Family Neuromuscular Disorders: No Hx Family Neurologic Disorders: No Hx Family HEENT Disorders: No Hx Family Autoimmune Disorders: No Father Adopted: No Family Member Ethnicity: Non- Living Status: Still Living Hx Family Cardiac Disorders: Yes (Mild [place] with stent x1) Hx Family Respiratory Disorders: No Hx Family Cancer: No Hx Family GI Disorders: No Hx Family Endocrine Disorder: No Hx Family Neuromuscular Disorders: No Hx Family Neurologic Disorders: No Hx Family HEENT Disorders: No Hx Family Autoimmune Disorders: No Internal Medicine - H&P: Meds Isosorbide MONOnitrate (24 HR) [Imdur] 60 mg PO DAILY 01/08/16 [History] Nitroglycerin [Nitrostat] 0.4 mg SL Q5M PRN 01/08/16 [History] Aspirin 81 mg PO DAILY tab.chew 01/12/16 [Rx] Metoprolol XL (24 HR) Succ [Toprol Xl] 50 mg PO DAILY #30 tab.er.24h 01/12/16 [ Rx] Clopidogrel [Plavix] 75 mg PO DAILY #30 tablet 08/08/16 [Rx] Atorvastatin Calcium [Lipitor] 80 mg PO HS 07/08/17 [History] Loratadine [Claritin] 10 mg PO DAILY 07/08/17 [History] Metoprolol XL (24 HR) Succ [Toprol Xl] 25 mg PO DAILY #30 tab.er.24h 07/09/17 [ Rx] Isosorbide MONOnitrate (24 HR) [Imdur] 60 mg PO DAILY 07/26/17 [History] Lisinopril [Zestril] 5 mg PO DAILY 07/26/17 [History] 3 Allergy/AdvReac Type Severity Reaction Status Date / Time Penicillins Allergy Anaphylaxis Verified 08/05/16 15:58 All Systems PM: A 10-system review of systems was performed and is negative for pertinent findings except as documented above in the HPI. - Constitutional Constitutional: no chills, no fever(s), no night sweats - EENT Eyes: no change in vision, no discharge, no pain, no photophobia Ears: no ear discharge, no ear pain, no tinnitus Nose, mouth and throat: no dysphagia, no nasal discharge, no neck pain, no sore throat - Cardiovascular Cardiovascular ROS IM: irregular heart rhythm, palpitations, no chest pain, no diaphoresis, no dyspnea, no lightheadedness, no syncope - Respiratory Respiratory: no cough, no dyspnea, no wheezing, no excessive phlegm production - Gastrointestinal Gastrointestinal: no abdominal pain, no diarrhea, no hematemesis, no hematochezia, no melena, no nausea, no vomiting - Musculoskeletal Musculoskeletal ROS IM: no numbness, no tingling - Integumentary Integumentary IM: no rash, no unusual bruising - Neurological Neurological ROS: numbness (facial), no confusion, no convulsions, no focal weakness, no tingling, no tremor(s) - Hematologic/Lymphatic Hematologic/Lymphatic: no easy bruising - Constitutional Vitals: Temp Pulse Resp BP Pulse Ox 97.5 F L 70 18 97/58 96 07/26/17 22:50 07/26/17 22:50 07/26/17 22:50 07/26/17 22:50 07/26/17 22:50 General appearance: Present: cooperative, pleasant, no acute distress, answers questions appropriately - Head Head exam: Present: atraumatic, normocephalic - Eye Eye exam: Present: PERRL, conjuntiva pink, sclera anicteric - Neck Neck exam general surgery: Present: supple, trachea midline. Absent: lymphadenopathy - Respiratory Respiratory exam: Present: CTAB. Absent: accessory muscle use, rales, rhonchi, wheezes - Cardiovascular Cardiovascular exam: Present: distant heart sounds, RRR, +S1, +S2. Absent: diastolic murmur, gallop, rubs, systolic murmur Additional comments: AICD/pacemaker device seen overlying chest, no erythema over the skin - GI/Abdominal GI/Abdominal exam: Present: normal bowel sounds, soft, no peritoneal signs. Absent: distended, tenderness - Extremities Exam Extremities exam: Present: warm, radial pulses palpable and symmetrical. Absent : calf tenderness, cyanotic, pedal edema - Neurological Exam Neurological exam: Present: alert, no focal deficits. Absent: facial droop, speech deficit - Skin Skin exam: Present: dry, intact
[2017-07-27 01:47] LABS: Basophils % 0.5 %; Eosinophils % 0.6 %; Hemoglobin 14.8 g/dL (12.9-16.9); Immature Granulocytes % 0.5 % (0-4); Lymphocytes # 2.1 K/mcL (0.6-4.6); Lymphocytes % 33.2 %; Mean Corpuscular HGB Conc 35.2 g/dL (31.6-35.5); Mean Corpuscular Hemoglobin 31.7 pg (28.0-33.3); Mean Corpuscular Volume 89.9 fL (83.0-100.0); Mean Platelet Volume 10.5 fL (9.4-12.4); Monocytes # 0.5 K/mcL (0.0-1.3); Neutrophils # 3.6 K/mcL (1.6-8.9); Platelet Count 227 K/mcL (140-400); Red Blood Count 4.67 M/mcL (4.19-5.50); Segmented Neutrophils % 57.2 %
[2017-07-27 01:57] LABS: BUN/Creatinine Ratio 13 (6-26); Blood Urea Nitrogen 13 mg/dL (8-26); Calcium 8.8 mg/dL (8.6-10.8); Carbon Dioxide 23 mEq/L (19-29); Chloride 106 mEq/L (98-109); Glucose 138 mg/dL (70-99); Osmolality,Calculated 288 (280-300); Phosphorous 3.4 mg/dL (2.3-4.7); Potassium 3.5 mEq/L (3.5-4.5); Sodium 138 mEq/L (136-145); eGFR For African Americans > 60 (> 60); eGFR For Non-African Americans > 60 (> 60)
--- NOTE | 2017-07-27 04:20 | Event Note ---
Date of Encounter: 07/27/17 Time of Encounter: 04:19 Patient seen and examined with medical tech agree with assessment and plan.
[2017-07-27] MEDS ORDERED: Heparin 25,000 UNIT/500 ML D5W 25,000 UNIT/500 ML MLS IVC SCH (04:30)
[2017-07-27] MEDS ORDERED: *HR* Heparin 5,000 UNIT/ML VIAL IVP PRN ×2 (04:44)
[2017-07-27] MEDS ORDERED: *HR* Heparin 5,000 UNIT/ML VIAL IVP ONE (04:44)
[2017-07-27 07:43] LABS: Prothrombin Time 11.2 Seconds (9.4-12.1)
[2017-07-27 07:46] LABS: Hemoglobin 15.1 g/dL (12.9-16.9); Mean Corpuscular HGB Conc 35.1 g/dL (31.6-35.5); Mean Corpuscular Hemoglobin 31.5 pg (28.0-33.3); Mean Corpuscular Volume 89.8 fL (83.0-100.0); Mean Platelet Volume 10.8 fL (9.4-12.4); Platelet Count 209 K/mcL (140-400); Red Blood Count 4.79 M/mcL (4.19-5.50); Red Cell Distribution Width 13.1 % (11.5-14.5)
[2017-07-27 08:07] LABS: Activated Partial Thrombo Time 225.8 Seconds (26.0-36.0)
[2017-07-27 08:18] LABS: Heparin anti-factor XA UFH 0.74 IU/mL (0.30-0.70)
[2017-07-27] MEDS ORDERED: Metoprolol XL (24 HR) Succ 50 MG TAB.ER.24H PO SCH (09:00)
[2017-07-27] MEDS ORDERED: Aspirin 81 MG TAB.CHEW PO SCH (09:00)
[2017-07-27] MEDS ORDERED: Isosorbide MONOnitrate (24 HR) 60 MG TAB.ER.24H PO SCH (09:00)
[2017-07-27] MEDS ORDERED: Metoprolol XL (24 HR) Succ 25 MG TAB.ER.24H PO SCH (09:00)
[2017-07-27 11:54] VITALS: BP 119/71
--- NOTE | 2017-07-27 12:10 | Event Note ---
Date of Encounter: 07/27/17
--- NOTE | 2017-07-27 13:04 | Cardiology Consult Note ---
Date of Encounter: 07/27/17 Time of Encounter: 13:04 Assessment and Plan (1) ST segment changes on electrocardiogram Current Visit: Yes Status: Acute Compared to EKG 07/2016 there are new anterior deep T wave inversions concerning for ischemia. Pt denies chest pain. Troponins negative x 3. 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 Chief complaint on admission was palpitations and elevated BP. Echo 07/08/17 EF 30-35%, regional wall motion abnormalities. Known hx of ICMP. Since pt is asymptomatic, no further work-up needed as inpt. Recomment outpt follow-up. Anticipate sign off once seen and evaluated by Dr. Cotto. (2) Palpitations Current Visit: No Status: Resolved Recently diagnosed SVT. Continue BB. Follow-up with Dr. Lilian Rojas as outpt. ICD in place for ICMP. (3) Ischemic cardiomyopathy Current Visit: No Status: Chronic EF 30-35%. Known CAD. ICD in place. Continue BB and ACEi. Euvolemic on exam. (4) CAD (coronary artery disease) Current Visit: No Status: Chronic ASA, Plavix, Statin, BB, ACEi, nitrates. Qualifiers: Coronary Disease-Associated Artery/Lesion type: [place] artery [place] vs. transplanted heart: [place] heart Associated angina: without angina Qualified Code(s): I25.10 - Atherosclerotic heart disease of [place] coronary artery without angina pectoris (5) Accelerated hypertension Current Visit: Yes Status: Acute BP reportedly 180s/120s at home. Recommend PRN Clonidine at home when systolic BP >160. Continue BB and ACEi. Discussion w patient/family: The assessment and plan as outlined above was discussed with the patient and/or family members who expressed understanding and agreement. All questions were answered. Thank you for involving us in the care of your patient. Please call with any questions. I will discuss all the above with Dr. Cotto and make changes as necessary. History of Present Illness Consult date: 07/27/17 Requesting physician: Renato Elaine Consult reason: EKG changes Chief complaint: palpitations History of present illness: Mr. Maddox is a 47 year old male Pt is 47y/o WM with CAD s/p PCI, tobacco/EtOH abuse, HTN, hyperlipidemia, ICMP s /p ICD that presented to ED for palpitations, elevated BP reportedly 180/120 at home. He denies chest pain or dyspnea, was recently hospitalized for SVT. Troponins have been negative, but EKG shows significant ST changes when compared to EKG 07/2016. There are new deep anterior T wave changes. Cardiology consulted for recommendations. Recent CV testing: Echocardiogram 07/08/17: Impressions: Mildly dilated left ventricle. Severe LV systolic dysfunction, LVEF 30-35%. There are regional wall motion abnormalities, see diagram below. Mild left ventricular diastolic dysfunction. Normal right ventricular size and function. Mildly dilated left atrium. No significant valvular dysfunction. No evidence of pulmonary hypertension. Cardiac catheterization 08/07/16: Impressions: Triple vessel coronary artery disease. 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 Moderately severe global LV dysfunction. EF 35% Patient had successful PTCA/Drug-Eluting Stent placement in the mid LAD- FFR Measurement: 0.73 across mid LAD lesion prior to PCI. Coronary Dominance: Right Lesion Findings/Interventions * Left Main Coronary Artery There is a 50% stenosis in the LMCA. * Left Anterior Descending There is a 30% stenosis in the Proximal LAD. There is a 30 mm long, 70% stenosis in the Mid LAD- FFR 0.73. The lesion has no thrombus present. An intervention was performed on the Mid LAD with a final stenosis of 0%. There were no lesion complications. The final ALMAZ flow was 3. There is a 100% stenosis in the 1st Diagonal which fills via left to left collaterals. * Circumflex There is a 20% stenosis in the Proximal Circumflex. There is a 50% stenosis in the 1st Marginal. 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 R PDA fills via L to R collaterals. Past Med Surg Social Fam HX - Past Medical History Medical history: cardiomyopathy, CHF, coronary artery disease, hyperlipidemia, hypertension, myocardial infarction Psychiatric history: no psych history - Past Surgical History Surgical History: angioplasty/stent, pacemaker/AICD - Social History Smoking Status: Current every day smoker Packs per day: 1/2 Smokeless Tobacco Status: No Alcohol use: occasionally Drug use: none - Family History Sister Family Member Ethnicity: Non- Living Status: Still Living Hx Family Cardiac Disorders: Yes (HTN) Mother Adopted: No Family Member Ethnicity: Non- Living Status: Still Living Hx Family Cardiac Disorders: Yes (CHF, bypass) Hx Family Respiratory Disorders: No Hx Family Cancer: No Hx Family GI Disorders: No Hx Family Endocrine Disorder: No Hx Family Neuromuscular Disorders: No Hx Family Neurologic Disorders: No Hx Family HEENT Disorders: No Hx Family Autoimmune Disorders: No Father Adopted: No Family Member Ethnicity: Non- Living Status: Still Living Hx Family Cardiac Disorders: Yes (Mild [place] with stent x1) Hx Family Respiratory Disorders: No Hx Family Cancer: No Hx Family GI Disorders: No Hx Family Endocrine Disorder: No Hx Family Neuromuscular Disorders: No Hx Family Neurologic Disorders: No Hx Family HEENT Disorders: No Hx Family Autoimmune Disorders: No Medications and Allergies Isosorbide MONOnitrate (24 HR) [Imdur] 60 mg PO DAILY 01/08/16 [History] Nitroglycerin [Nitrostat] 0.4 mg SL Q5M PRN 01/08/16 [History] Aspirin 81 mg PO DAILY tab.chew 01/12/16 [Rx] Metoprolol XL (24 HR) Succ [Toprol Xl] 50 mg PO DAILY #30 tab.er.24h 01/12/16 [ Rx] Clopidogrel [Plavix] 75 mg PO DAILY #30 tablet 08/08/16 [Rx] Atorvastatin Calcium [Lipitor] 80 mg PO HS 07/08/17 [History] Loratadine [Claritin] 10 mg PO DAILY 07/08/17 [History] Metoprolol XL (24 HR) Succ [Toprol Xl] 25 mg PO DAILY #30 tab.er.24h 07/09/17 [ Rx] Isosorbide MONOnitrate (24 HR) [Imdur] 60 mg PO DAILY 07/26/17 [History] Lisinopril [Zestril] 5 mg PO DAILY 07/26/17 [History] 3 Allergy/AdvReac Type Severity Reaction Status Date / Time Penicillins Allergy Anaphylaxis Verified 08/05/16 15:58 All Systems Review: A 10-system review of systems was performed and is negative for pertinent findings except as documented above in the HPI. - Cardiovascular Cardiovascular: palpitations Physical Examination Vital Signs, Last 4 Hours Temp Pulse Resp BP Pulse Ox 07/27/17 11:00 97.9 F 70 16 119/71 96 Vital Signs Temp Pulse Resp BP Pulse Ox 07/27/17 11:00 97.9 F 70 16 119/71 96 07/27/17 07:00 97.8 F 64 16 97/63 96 07/27/17 03:35 97.4 F L 72 16 101/64 97 07/26/17 22:50 97.5 F L 70 18 97/58 96 07/26/17 20:06 98.1 F 77 16 102/64 94 Intake and Output 07/26/17 07/27/17 07/27/17 23:59 07:59 15:59 Intake Total 317 / 317 Balance 317 / 317 Intake: IV Fluids 317 / 317 Heparin 25,000 UNIT/500 ML D5W 317 / 317 25,000 unit In 500 ml @ 12 UNIT /KG/HR 17.081 mls/hr IVC .Q24H [facility] Rx#:[id number] Other: Meal NPO Weight 71.169 kg General: Conversant, No Apparent Distress HEENT: Atraumatic, Normocephaly, Mucus Membranes Moist Neck: No JVD, Normal carotid pulses Cardiac: Reg Rate and Rhythm, Normal S1 and S2, No Murmur Lungs: Normal Breath Sounds, No Wheeze, Rales, Rhonchi Neuro: Alert and responsive, No focal deficits noted Abdomen: Soft, Non-Tender Skin: No rashes noted on visualized skin Musculoskeletal: No Chest Wall Tenderness Extremities: No Clubbing, No Cyanosis, No Edema, Normal Pulses Results 07/27/17 06:22 07/27/17 01:20 Lab Results 07/27/17 07/27/17 07/27/17 01:20 01:20 01:20 WBC 6.3 Hgb 14.8 D Hct 42.0 Plt Count 227 INR APTT Sodium 138 Potassium 3.5 Chloride 106 Carbon Dioxide 23 BUN 13 Creatinine 0.99 Glucose 138 H Calcium 8.8 Magnesium 2.0 Troponin I 0.02 07/27/17 07/27/17 07/27/17 03:56 06:22 06:22 WBC 8.0 Hgb 15.1 Hct 43.0 Plt Count 209 INR APTT 50.1 H D Sodium Potassium Chloride Carbon Dioxide BUN Creatinine Glucose Calcium Magnesium Troponin I 0.01 07/27/17 06:22 WBC Hgb Hct Plt Count INR 1.0 APTT 225.8 H* D Sodium Potassium Chloride Carbon Dioxide BUN Creatinine Glucose Calcium Magnesium Troponin I Short CBC 07/27/17 07/27/17 Range/Units 06:22 01:20 WBC 8.0 6.3 (4.3-11.1) K/mcL Hgb 15.1 14.8 D (12.9-16.9) g/dL Hct 43.0 42.0 (37.5-50.1) % Plt Count 209 227 (140-400) K/mcL Neutrophils # 3.6 (1.6-8.9) K/mcL BMP 07/27/17 Range/Units 01:20 Sodium 138 (136-145) mEq/L Potassium 3.5 (3.5-4.5) mEq/L Chloride 106 (98-109) mEq/L Carbon Dioxide 23 (19-29) mEq/L BUN 13 (8-26) mg/dL Creatinine 0.99 (0.72-1.25) mg/dL Glucose 138 H (70-99) mg/dL Calcium 8.8 (8.6-10.8) mg/dL Cardiac Enzymes 07/27/17 07/27/17 Range/Units 06:22 01:20 Troponin I 0.01 0.02 (0-0.03) ng/mL Active Medications Acetaminophen (Tylenol) 650 mg PO Q6HR PRN PRN Reason: Mild Pain (1-3) Stop: 01/26/18 00:45 Aspirin (Aspirin) 81 mg PO DAILY [facility] Stop: 01/26/18 09:01 Last Admin: 07/27/17 08:54 Dose: 81 mg Atorvastatin Calcium (Lipitor) 80 mg PO HS [facility] Stop: 01/26/18 21:01 Clopidogrel Bisulfate (Plavix) 75 mg PO DAILY [facility] Stop: 01/26/18 09:01 Last Admin: 07/27/17 08:54 Dose: 75 mg Heparin Sodium (Porcine) (Heparin) 4,000 unit IVP Q6HR PRN PRN Reason: SEE COMMENTS Stop: 01/26/18 04:45 Heparin Sodium (Porcine) (Heparin) 2,000 unit IVP Q6H PRN PRN Reason: SEE COMMENTS Stop: 01/26/18 04:45 Last Admin: 07/27/17 06:00 Dose: 2,000 unit Isosorbide Mononitrate (Imdur) 60 mg PO DAILY [facility] Stop: 01/26/18 09:01 Last Admin: 07/27/17 08:54 Dose: 60 mg Lisinopril (Zestril) 5 mg PO DAILY [facility] PRN Reason: Protocol Stop: 01/26/18 09:01 Last Admin: 07/27/17 08:54 Dose: 5 mg Metoprolol Succinate (Toprol Xl) 25 mg PO DAILY [facility] Stop: 01/26/18 09:01 Last Admin: 07/27/17 08:57 Dose: Not Given Metoprolol Succinate (Toprol Xl) 50 mg PO DAILY [facility] Stop: 01/26/18 09:01 Last Admin: 07/27/17 08:57 Dose: Not Given Naloxone HCl (Narcan) 0.4 mg IVP Q2MIN PRN PRN Reason: Opioid Reversal Stop: 01/26/18 00:45 Nitroglycerin (Nitroglycerin) 0.4 mg SL Q5M PRN PRN Reason: Chest Pain Stop: 01/26/18 00:49 Ondansetron HCl (Zofran Odt) 4 mg SL Q8HR PRN PRN Reason: Nausea And Vomiting Stop: 01/26/18 00:45 - Imaging and Cardiology Echo: report reviewed Cardiac cath: report reviewed - EKG Interpretation EKG results cardiology: personally reviewed (SR, anterior ischemia), other (12 hr tele AVG HR 70, SR) Consult Discharge Plan - Plan Referrals: Carlee Lamas, PHARMACY TECHNICIAN INSTRUCTOR [Primary Care Provider] -
--- NOTE | 2017-07-27 14:15 | Discharge Summary ---
Date of Encounter: 07/27/17 Time of Encounter: 14:13 - Discharge Diagnosis (1) ST segment changes on electrocardiogram Priority: Primary Status: Acute (2) Palpitations Priority: Primary Status: Acute (3) CAD (coronary artery disease) Priority: Secondary Status: Chronic Qualifiers: Coronary Disease-Associated Artery/Lesion type: [place] artery [place] vs. transplanted heart: [place] heart Associated angina: without angina Qualified Code(s): I25.10 - Atherosclerotic heart disease of [place] coronary artery without angina pectoris (4) HLD (hyperlipidemia) Priority: Secondary Status: Chronic Qualifiers: Hyperlipidemia type: mixed hyperlipidemia Qualified Code(s): E78.2 - Mixed hyperlipidemia (5) HTN (hypertension) Priority: Secondary Status: Chronic Qualifiers: Hypertension type: essential hypertension Qualified Code(s): I10 - Essential (primary) hypertension (6) Ischemic cardiomyopathy Priority: Secondary Status: Chronic (7) Tobacco abuse Priority: Secondary Status: Chronic - Discharge Medications Home Medications: Isosorbide MONOnitrate (24 HR) [Imdur] 60 mg PO DAILY 01/08/16 [History] Nitroglycerin [Nitrostat] 0.4 mg SL Q5M PRN 01/08/16 [History] Aspirin 81 mg PO DAILY tab.chew 01/12/16 [Rx] Metoprolol XL (24 HR) Succ [Toprol Xl] 50 mg PO DAILY #30 tab.er.24h 01/12/16 [ Rx] Clopidogrel [Plavix] 75 mg PO DAILY #30 tablet 08/08/16 [Rx] Atorvastatin Calcium [Lipitor] 80 mg PO HS 07/08/17 [History] Loratadine [Claritin] 10 mg PO DAILY 07/08/17 [History] Metoprolol XL (24 HR) Succ [Toprol Xl] 25 mg PO DAILY #30 tab.er.24h 07/09/17 [ Rx] Isosorbide MONOnitrate (24 HR) [Imdur] 60 mg PO DAILY 07/26/17 [History] Lisinopril [Zestril] 5 mg PO DAILY 07/26/17 [History] Allergies/Adverse Reactions: 3 Allergy/AdvReac Type Severity Reaction Status Date / Time Penicillins Allergy Anaphylaxis Verified 08/05/16 15:58 Date of admission: 07/26/17 19:55 Primary care physician: Carlee Lamas CNP Consults: 07/27/17 00:44 Consult to Cardiology [CONS] Routine Comment: Consulting Provider: Cardiology Layne Reason for Consult: palpitations h/o stent x6 and AICD, new t-wave inversion in v4; currently on hep ggt Call Completed: No Discharging clinician: Joshua Carpio Anticipated date of discharge: 07/27/17 - Patient Status Disposition: Home, Self-Care Condition: Good Functional capacity at discharge: independent ambulation Overall status at discharge: patient is back to baseline - Discharge Instructions Follow Up With: Carlee Lamas CNP [Primary Care Provider] - Additional Instructions: FOLLOW UP WITH DR. VELEZ IN 1-2 WEEKS TIME - Diet and Activity Activity: resume usual activities as tolerated Diet: low fat, low cholesterol, low salt diet Interval History: Mr. Maddox is a 47 year old male who presented to [facility] for palpitations. He has a significant cardiac history including 6 stents and has an AICD, and was recently admitted to weeks ago for SVT where his beta blockers were increased. 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 While going to the bathroom he experienced palpitations, facial numbness and measure his blood pressure which was 180/120. He states that his palpitations and numbness have since resolved. He denied any chest pain, shortness of breath, nausea, vomiting, diaphoresis, fever, chills. Patient believes that his symptoms were exacerbated by anxiety, although he has never been formally diagnosed with it. He does not feel any shocks from his defibrillator. He was started on heparin drip and admitted to observation for cardiology evaluation Hospital course: He was seen and evaluated by cardiology, recommendations were no intervention since patient was asymptomatic. His blood pressure has been normal since admission Patient is seen and evaluated at bedside with his spouse and denies any complains He is ambulatory and asymptomatic He is asking to be discharged home Educated on tobacco cessation, compliance with medications patient is concerned he might have anxiety, follow up with PCP regarding this Time spent discussing smoking cessation with patient: 3 to 10 minutes - Time Spent with Patient Total time spent providing and/or coordinating discharge services: Less than 30 minutes - Constitutional Vitals: Temp Pulse Resp BP Pulse Ox 97.9 F 70 16 119/71 96 07/27/17 11:00 07/27/17 11:00 07/27/17 11:00 07/27/17 11:00 07/27/17 11:00 General appearance: Present: cooperative, A&O X 3, pleasant, no acute distress, answers questions appropriately - Head Head exam: Present: atraumatic, normocephalic - Eye Eye exam: Present: PERRL, conjuntiva pink, sclera anicteric Pupils: Present: PERRL - Neck Neck exam general surgery: Present: supple, trachea midline. Absent: lymphadenopathy - Respiratory Respiratory exam: Present: CTAB. Absent: accessory muscle use, rales, rhonchi, wheezes - Cardiovascular Cardiovascular exam: Present: RRR, +S1, +S2. Absent: diastolic murmur, gallop, rubs, systolic murmur - GI/Abdominal GI/Abdominal exam: Present: normal bowel sounds, soft, no peritoneal signs. Absent: distended, tenderness - Extremities Exam Extremities exam: Present: warm, radial pulses palpable and symmetrical. Absent : calf tenderness, cyanotic, pedal edema - Neurological Exam Neurological exam: Present: alert, CN II-XII intact, oriented X3, no focal deficits. Absent: pronater drift, facial droop, speech deficit - Skin Skin exam: Present: dry, intact
--- NOTE | 2017-07-29 06:15 | Electrocardiograph Report ---
[address] [place], [place] [address] Test Date: 2017-07-27 Pat Name: Erlin Maddox Department: 113 Room: 3B16 Gender: M Gusset Maker: [id number] : 1970 Requested By: Josefina Gil Order Number: [id number] Reading MD: Fei Rodriguez MD Measurements Intervals [place] Rate: 73 P: 41 AR: 168 QRS: 56 QRSD: 106 T: 137 QT: 447 QTc: 473 Interpretive Statements SINUS RHYTHM ANTERIOR MYOCARDIAL INFARCTION, PROBABLY RECENT POSSIBLE INFERIOR MYOCARDIAL INFARCTION, PROBABLY OLD ACUTE [place] Electronically Signed On 07-29-2017 6:14:11 EDT by Fei Rodriguez MD
--- NOTE | 2017-07-29 06:29 | Electrocardiograph Report ---
[address] [place], [place] [address] Test Date: 2017-07-27 Pat Name: Erlin Maddox Department: 113 Room: 3B16 Gender: M Histologic Technician: [id number] : 1970 Requested By: Josefina Gil Order Number: [id number] Reading MD: Fei Rodriguez MD Measurements Intervals [place] Rate: 62 P: 47 CA: 163 QRS: 62 QRSD: 100 T: 150 QT: 440 QTc: 446 Interpretive Statements SINUS RHYTHM ANTEROLATERAL ISCHEMIA Electronically Signed On 07-29-2017 6:28:07 EDT by Fei Rodriguez MD
== END 2017-07-27 16:00 | disposition home or self-care (01) ==
LOC: 3BNU
PROVIDERS: ADMIT Internal Medicine; ATTEND Registered Nurse

== ENCOUNTER 2018-10-27 06:45 | Inpatient (IN) ==
[2018-10-27] MEDS ORDERED: *HR* Heparin 5,000 UNIT/ML VIAL IVP ONE (10:39)
[2018-10-27] MEDS ORDERED: *HR* Heparin 5,000 UNIT/ML VIAL IVP PRN ×2 (10:39)
--- NOTE | 2018-10-27 11:02 | Internal Med History&Physical ---
Date of Encounter: 10/27/18 Time of Encounter: 11:00 Internal Medicine - H&P: HPI Chief complaint: Chest pain Admitted From: Home Plans for Post Hospital Care: Home History of present illness: Patient is a 48-year-old male with past medical history significant for ischemic cardiomyopathy with a history of MIs 6 with 6 stent placements and EF of 30- 35%, in addition to SVT hypertension and hyperlipidemia who presents as a transfer from [facility] in [facility] on 10/27/18 for ACS rule out. Patient reports a three-day history of exertional dyspnea with lightheadedness and dizziness. Patient was concerned after symptoms again were triggered after he walked up steps at work this morning. Patient was sent to [facility] for further evaluation where he was found to have a troponin of 1.34. Patient was subsequently transferred to [facility] for ACS as rule out. 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 Psychiatric history: no psych history - Past Surgical History Surgical History: angioplasty/stent, pacemaker/AICD Additional surgical history: 6 stents - Social History Smoking Status: Current every day smoker Smokeless Tobacco Status: No Alcohol use: occasionally Drug use: none - Family History Sister Family Member Ethnicity: Non- Living Status: Still Living Hx Family Cardiac Disorders: Yes (HTN) Mother Adopted: No Family Member Ethnicity: Non- Living Status: Still Living Hx Family Cardiac Disorders: Yes (CHF, bypass) Hx Family Respiratory Disorders: No Hx Family Cancer: No Hx Family GI Disorders: No Hx Family Endocrine Disorder: No Hx Family Neuromuscular Disorders: No Hx Family Neurologic Disorders: No Hx Family HEENT Disorders: No Hx Family Autoimmune Disorders: No Father Adopted: No Family Member Ethnicity: Non- Living Status: Still Living Hx Family Cardiac Disorders: Yes (Mild [place] with stent x1) Hx Family Respiratory Disorders: No Hx Family Cancer: No Hx Family GI Disorders: No Hx Family Endocrine Disorder: No Hx Family Neuromuscular Disorders: No Hx Family Neurologic Disorders: No Hx Family HEENT Disorders: No Hx Family Autoimmune Disorders: No Internal Medicine - H&P: Meds Isosorbide MONOnitrate (24 HR) [Imdur] 60 mg PO DAILY 01/08/16 [History] Nitroglycerin [Nitrostat] 0.4 mg SL Q5M PRN 01/08/16 [History] Aspirin 81 mg PO DAILY tab.chew 01/12/16 [Rx] Clopidogrel [Plavix] 75 mg PO DAILY #30 tablet 08/08/16 [Rx] Atorvastatin Calcium [Lipitor] 80 mg PO HS 07/08/17 [History] Loratadine [Claritin] 10 mg PO DAILY 07/08/17 [History] Metoprolol XL (24 HR) Succ [Toprol Xl] 25 mg PO DAILY #30 tab.er.24h 07/09/17 [Rx] Isosorbide MONOnitrate (24 HR) [Imdur] 60 mg PO DAILY 07/26/17 [History] Lisinopril [Zestril] 5 mg PO DAILY 07/26/17 [History] Metoprolol XL (24 HR) Succ [Toprol Xl] 75 mg PO DAILY 10/27/18 [History] Allergy/AdvReac Type Severity Reaction Status Date / Time Penicillins Allergy Anaphylaxis Verified 08/05/16 15:58 All Systems PM: A 10-system review of systems was performed and is negative for pertinent findings except as documented above in the HPI. - Constitutional Vitals: Temp Pulse Resp BP Pulse Ox 97.6 F 84 16 108/70 97 10/27/18 10:31 10/27/18 10:31 10/27/18 10:31 10/27/18 10:31 10/27/18 10:40 General appearance: Present: A&O X 3, no acute distress Exam: As above - Head Head exam: Present: normocephalic - Eye Eye exam: Present: normal appearance - ENT ENT exam: Present: mucous membranes moist - Respiratory Respiratory exam: Present: CTAB. Absent: accessory muscle use, rales, rhonchi, wheezes - Cardiovascular Cardiovascular exam: Present: RRR, +S1, +S2. Absent: diastolic murmur, gallop, rubs, systolic murmur - GI/Abdominal GI/Abdominal exam: Present: normal bowel sounds, soft, no peritoneal signs. Absent: distended, tenderness - Extremities Exam Extremities exam: Absent: pedal edema - Neurological Exam Neurological exam: Absent: no focal deficits - Psychiatric Psychiatric exam: Present: normal mood - Skin Skin exam: Present: normal color - Assessment and plan (1) Elevated troponin Current Visit: No Status: Acute Assessment and plan: Patient reports a three-day history of exertional dyspnea with lightheadedness and dizziness. Patient was concerned after symptoms again were triggered after he walked up steps at work this morning. He does have a significant history of coronary arterial disease as stated below. Patient was found to have a troponin of 1.34. Will trend serial troponins and monitor on telemetry Will also order echocardiogram. Will continue heparin drip Cardiology consulted and appreciate recommendations. (2) Ischemic cardiomyopathy Current Visit: No Status: Chronic Assessment and plan: Patient has hx of MIs x6 and stent placement x6. ICD placed by Dr. Rojas in 07/2016. 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 Echo 07/08/17 EF 30-35%, regional wall motion abnormalities. Will continue home dose of aspirin, metoprolol, atorvastatin, Plavix and Imdur (3) SVT (supraventricular tachycardia) Current Visit: No Status: Acute Assessment and plan: Continue beta millicent (4) HTN (hypertension) Current Visit: No Status: Chronic Assessment and plan: Continue lisinopril and metoprolol Qualifiers: Hypertension type: essential hypertension Qualified Code(s): I10 - Essential (primary) hypertension (5) HLD (hyperlipidemia) Current Visit: No Status: Chronic Assessment and plan: Continue atorvastatin Qualifiers: Hyperlipidemia type: mixed hyperlipidemia Qualified Code(s): E78.2 - Mixed hyperlipidemia (6) Tobacco abuse Current Visit: No Status: Chronic Assessment and plan: Patient is a 35 pack year smoker (7) DVT prophylaxis Current Visit: No Status: Acute Assessment and plan: On heparin drip as above - Time Spent With Patient Total time spent is greater than 50% in coordination of care (as documented) at patient's floor/unit and/or counseling patient:
[2018-10-27] MEDS ORDERED: Naloxone 0.4 MG/ML INJ IVP PRN (11:15)
[2018-10-27] MEDS ORDERED: Nitroglycerin 0.4 MG TAB.SUBL SL PRN (11:18)
[2018-10-27] MEDS: Heparin 25,000 UNIT/500 ML D5W 25,000 UNIT/500 ML BAG IVC SCH (11:28)
[2018-10-27 11:55] LABS: Hematocrit 45.2 % (37.5-50.1); Hemoglobin 15.7 g/dL (12.9-16.9); Mean Corpuscular HGB Conc 34.7 g/dL (31.6-35.5); Mean Corpuscular Volume 92.1 fL (83.0-100.0); Mean Platelet Volume 10.3 fL (9.4-12.4); Platelet Count 198 K/mcL (140-400); Red Blood Count 4.91 M/mcL (4.19-5.50); Red Cell Distribution Width 13.3 % (11.5-14.5)
[2018-10-27 12:07] LABS: Heparin anti-factor XA UFH 0.73 IU/mL (0.30-0.70)
[2018-10-27 12:08] LABS: INR 0.9; Prothrombin Time 10.6 Seconds (9.4-12.1)
--- NOTE | 2018-10-27 12:49 | Cardiology Consult Note ---
Date of Encounter: 10/27/18 Time of Encounter: 12:40 Assessment and Plan (1) NSTEMI (non-ST elevated myocardial infarction) Current Visit: Yes Status: Acute NSTEMI. History of CAD, prior NM, s/p PCI to LAD in 2017. No chest pain reported, prior dizziness improved. Prior [facility] report reviewed. Borderline stenosis of LM, PCI to LAD. D1, RCA occluded. Recommend continue heparin drip, aspirin/Plavix, statin, ACEi/BB, and Imdur therapy. R/A/B to [facility] discussed with patient and . Both voiced understanding and wish to proceed. Check TTE. Further recommendations to follow. (2) Ischemic cardiomyopathy Current Visit: No Status: Chronic See meds under NSTEMI. CHF education provided. Repeat TTE pending. (3) S/P ICD (internal cardiac defibrillator) procedure Current Visit: No Status: Chronic Previous primary prevention ICD. Given dizziness, recommend device interrogation to evaluate for arrhythmias. Discussion w patient/family: The assessment and plan as outlined above was discussed with the patient and/or family members who expressed understanding and agreement. All questions were answered. Thank you for involving us in the care of your patient. Please call with any questions. History of Present Illness Consult date: 10/27/18 Requesting physician: Cole Villeda Consult reason: NSTEMI Chief complaint: Dizziness History of present illness: Mr. Maddox is a 48 year old male with a history of CAD, prior NM s/p PCI, tobacco use/EtOH abuse, s/p ICD. Presents with complaint of intermittent dizziness over past 3 days. Symptoms worsened yesterday, which took him to an outside ER. Troponin elevation noted, which prompted transfer. Reports currently feels better. Denies chest pain, but states he didn't have chest pain during prior cardiac issues. Troponin 1.11. CBC normal. TTE 07/08/2017: EF 30-35%. Hypokineisis of the basal to mid inferior, mid inferolateral, basal to mid anterolateral, mid anteroseptal and mid inferoseptal segments. Akinesis of the apex, apical septum, and apical inferior. Normal RV size and function. no VHD. No PHTN. [facility] 07/2016: EF 35%. LM 50%. LAD p30%, m70% (NIALL placed). D1 100%. CX p20%. OM1 50%. 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 Psychiatric history: no psych history - Past Surgical History Surgical History: angioplasty/stent, pacemaker/AICD Additional surgical history: 6 stents - Social History Smoking Status: Current every day smoker Smokeless Tobacco Status: No Alcohol use: occasionally Drug use: none - Family History Sister Family Member Ethnicity: Non- Living Status: Still Living Hx Family Cardiac Disorders: Yes (HTN) Mother Adopted: No Family Member Ethnicity: Non- Living Status: Still Living Hx Family Cardiac Disorders: Yes (CHF, bypass) Hx Family Respiratory Disorders: No Hx Family Cancer: No Hx Family GI Disorders: No Hx Family Endocrine Disorder: No Hx Family Neuromuscular Disorders: No Hx Family Neurologic Disorders: No Hx Family HEENT Disorders: No Hx Family Autoimmune Disorders: No Father Adopted: No Family Member Ethnicity: Non- Living Status: Still Living Hx Family Cardiac Disorders: Yes (Mild NM with stent x1) Hx Family Respiratory Disorders: No Hx Family Cancer: No Hx Family GI Disorders: No Hx Family Endocrine Disorder: No Hx Family Neuromuscular Disorders: No Hx Family Neurologic Disorders: No Hx Family HEENT Disorders: No Hx Family Autoimmune Disorders: No Medications and Allergies Isosorbide MONOnitrate (24 HR) [Imdur] 60 mg PO DAILY 01/08/16 [History] Nitroglycerin [Nitrostat] 0.4 mg SL Q5M PRN 01/08/16 [History] Aspirin 81 mg PO DAILY tab.chew 01/12/16 [Rx] Clopidogrel [Plavix] 75 mg PO DAILY #30 tablet 08/08/16 [Rx] Atorvastatin Calcium [Lipitor] 80 mg PO HS 07/08/17 [History] Loratadine [Claritin] 10 mg PO DAILY 07/08/17 [History] Metoprolol XL (24 HR) Succ [Toprol Xl] 25 mg PO DAILY #30 tab.er.24h 07/09/17 [Rx] Isosorbide MONOnitrate (24 HR) [Imdur] 60 mg PO DAILY 07/26/17 [History] Lisinopril [Zestril] 5 mg PO DAILY 07/26/17 [History] Metoprolol XL (24 HR) Succ [Toprol Xl] 75 mg PO DAILY 10/27/18 [History] Allergy/AdvReac Type Severity Reaction Status Date / Time Penicillins Allergy Anaphylaxis Verified 08/05/16 15:58 All Systems Review: The remainder of the systems were reviewed and are negative - Cardiovascular Cardiovascular: as per HPI - Neurological Neurological: dizziness Physical Examination Vital Signs, Last 4 Hours Temp Pulse Resp BP Pulse Ox 10/27/18 10:40 97 10/27/18 10:31 97.6 F 84 16 108/70 97 General: Conversant, No Apparent Distress HEENT: Atraumatic, Normocephaly, Mucus Membranes Moist Neck: No JVD, Normal carotid pulses Cardiac: Reg Rate and Rhythm, Normal S1 and S2, No Murmur Lungs: Normal Breath Sounds, No Wheeze, Rales, Rhonchi Neuro: Alert and responsive, No focal deficits noted Abdomen: Soft, Non-Tender Skin: No rashes noted on visualized skin Musculoskeletal: No Chest Wall Tenderness Extremities: No Clubbing, No Cyanosis, No Edema Results 10/27/18 11:17 Lab Results 10/27/18 10/27/18 10/27/18 11:17 11:17 11:17 WBC 8.7 Hgb 15.7 Hct 45.2 Plt Count 198 INR 0.9 Troponin I 1.11 H* - Imaging and Cardiology Echo: report reviewed Cardiac cath: report reviewed - EKG Interpretation EKG results cardiology: personally reviewed Consult Discharge Plan - Plan Referrals: NONE,PCP [Primary Care Provider] -
[2018-10-27] MEDS: Aspirin 81 MG TAB.CHEW PO SCH (14:31)
[2018-10-27] MEDS: Metoprolol XL (24 HR) Succ 50 MG TAB.ER.24H PO SCH (14:31)
[2018-10-27] MEDS ORDERED: *HR* FentaNYL (PF) 100 MCG/2 ML VIAL ONE (15:26)
[2018-10-27] MEDS ORDERED: *HR* Midazolam HCl 2 MG/2 ML VIAL ONE (15:26)
[2018-10-27] MEDS ORDERED: Heparin 1,000 UNITS/500 mL 500 ML ONE (15:27)
[2018-10-27] MEDS ORDERED: ISOVUE-370 200 ML INFUS..BTL ONE (15:27)
[2018-10-27] MEDS ORDERED: 0.9 % Sodium Chloride 2,000 ML ONE (15:27)
[2018-10-27] MEDS ORDERED: *HR* Heparin 10,000 UNIT/10 ML VIAL ONE (15:27)
[2018-10-27] MEDS ORDERED: Nitroglycerin 1,000 MCG/10 ML VIAL IV ONE (15:27)
--- NOTE | 2018-10-27 16:33 | Invasive Diagnostic Lab Proc ---
Name: Erlin Maddox Date of Study: 10/27/2018 Date: 1970 Ht: 68.9in Medical Record#: [id number] Age: 48 Wt: 164.24lb Gender: Male BSA: 1.9 Order #: [id number] BMI: 24.33 Physicians Procedure Physician: Tami Lynn MD Referring MD: Referring MD: Staff Name Position Time In Cande Santo RN Monitor 03:38 PM Duane Coppola RT (R) Scrub 03:38 PM Sarah Rodríguez RN Travel Med Surg Rn 03:38 PM Indications Indication Non-Stemi Procedures Performed Procedure L HRT ARTERY/VENTRICLE ANGIO Pre-Procedure Checklist Informed consent is complete signed and on chart. H&P is on chart. ID band is on and ID verified with patient. Patient NPO for procedure The procedure was described for the patient and questions were answered. Blood Pressure: 108/70 ECG is on chart. Plan of Care Patient will tolerate the procedure without complications. Adequate level of comfort will be maintained. Hemodynamics will remain stable Patient will recover from procedure without complications. Respiratory function will be maintained. Cardiac rhythm will remain stable. Patient temperature will be maintained. Patient and/or family have verbalized understanding of the procedure. Patient Education Chief Complaint/Reason for Test: Cardiac Cath Developmental Category: Adult (18-64 years) Developmentally Appropriate for Age: Yes Learning Barriers: None Education Needs: Procedure Education Method: Verbal Information Taught: Cardiac Cath Educational Evaluation: Able to repeat information Intravenous Access Time IV Size Location DC'd Fluid/Drip Rate Units RN 20g 1 10/10" Patent On Arrival Lt Antecubital 0.9NaCl 25 ml/hr Allergies Penicillins PCN Vital Signs Time BP (mmHg) HR (bpm) O2 Sat. RR (bpm) LOC 02:52 PM 108 / 70 84 97 % 16 5 = Fully awake and oriented or at pre-proc level 03:48 PM / % 5 = Fully awake and oriented or at pre-proc level 03:48 PM / % 4 = Oriented but drowsy 03:47 PM 115 / 83 83 98 % 16 03:52 PM 105 / 71 83 98 % 19 03:57 PM 112 / 78 84 96 % 16 04:02 PM 116 / 69 88 96 % 19 04:07 PM 116 / 85 87 97 % 6 04:12 PM 106 / 75 87 98 % 17 04:03 PM / % 4 = Oriented but drowsy Procedural Medications Time Medication Dose Units Method Given By 03:47 PM Oxygen 2 L/min nasal cannula Sarah Rodríguez RN 03:50 PM Versed 1 mg Intravenous Sarah Rodríguez RN 03:50 PM Fentanyl 50 mcg Intravenous Sarah Rodríguez RN 03:55 PM Lidocaine 2% 10 ml Subcutaneous Tami Lynn MD Chance Score Preprocedure Postprocedure Activity 2- Moves 4 extremities sustained head lift Activity 2- Moves 4 extremities sustained head lift Circulation 2- SBP +/= 20 points of pre-anesthetic level Circulation 2- SBP +/= 20 points of pre-anesthetic level Consciousness 2- Awake and alert oriented x 3 Consciousness 2- Awake and alert oriented x 3 O2 Saturation 2- Able to maintain O2 satruation of 92% on room air O2 Saturation 2- Able to maintain O2 satruation of 92% on room air Respiratory 2- Able to deep breathe and cough well Respiratory 2- Able to deep breathe and cough well Total Score 10 Total Score 10 Contrast Agent: Isovue Diagnostic Contrast: 48 ml Total Contrast: 48 ml Fluoro Dose: 2204 mGy Activated Clotting Time Time Seconds to Clot 04:08 PM 136 Procedure Log Time Note Enter By 03:38 PM 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 Informed consent was obtained. kmavis 03:41 PM Procedure start 15:41 kmavis 03:44 PM Vitals capture stopped. 03:46 PM Vitals capture started with the following parameters, Patient=Adult, Interval=5 min, Initial Frjrrnxt=502 mmHg, Deflation Rate=5 mmHg, Cuff placed on Right Arm 03:47 PM HR=83 bpm, JXNL=752/83 mmhg, SpO2=98 %, Resp=16 B/min 03:47 PM CathStat 03:47 PM [ Start or Stop Vital ] 03:47 PM Hair removed from procedure site in procedure lab using clippers. Bilateral groin prepped with Chloraprep by Cande Santo RN, then patient was draped. Skin intact. kmavis 03:48 PM Time: 15:47 Oxygen on at 2 L/min per nasal cannula by Sarah Rodríguez RN [facility] 03:48 PM Time: 15:48 Patient comfortable and pain free: Yes kmavis 03:48 PM Time: 15:48LOC: 5 = Fully awake and oriented or at pre-proc level kmavis 03:49 PM Recorded ECG: HR=83 Condition=Condition 1 03:49 PM Pressure channel 1 zero failed. 03:49 PM Pressure channel 1 zero failed. 03:49 PM Pressure channel 1 zeroed. 03:50 PM Time: 15:50 Versed 1 mg Intravenous Given by Sarah Rodríguez RN [facility] 03:50 PM Time: 15:50 Fentanyl 50 mcg Intravenous Given by Sarah Rodríguez RN [facility] 03:51 PM Pressure channel 1 zeroed. 03:52 PM HR=83 bpm, MCYS=000/71 mmhg, SpO2=98.0 %, Resp=19 B/min, EtCO2=35 mmHg 03:55 PM Time out was performed according to hospital policy. Conscious sedation and anesthesia was achieved (see medication log with in this report above) kmavis 03:56 PM Time: 15:55 10 ml Lidocaine 2% to right groin Subcutaneous Given by Tami Lynn MD kmavis 03:57 PM Micro-Introducer Kit utilized for sheath placement kmavis 03:57 PM Access obtained by percutaneous puncture. 6Fr 10cm Terumo Tuleta sheath placed in right Femoral artery. [id number] avis 03:57 PM 5Fr FR 4 catheter inserted over the wire DNC kmavis 03:57 PM 0.035 145cm Navilyst 3mmJ wire [id number] avis 03:57 PM HR=84 bpm, SMLC=859/78 mmhg, SpO2=96.0 %, Resp=16 B/min, EtCO2=32 mmHg 03:57 PM RCA angiography performed in multiple views. kmavis 03:58 PM Recorded Pressure: Ao, HR=83, Condition=Condition 1 (Aorta) Ao 95/76/86 03:58 PM Catheter removed kmavis 03:59 PM 5Fr FL 4 catheter inserted over the wire DN kmavis 03:59 PM LCA angiography performed in multiple views. kmavis 04:01 PM Recorded Pressure: Ao, HR=82, Condition=Condition 1 (Aorta) Ao 96/73/85 04:02 PM HR=88 bpm, VQHI=105/69 mmhg, SpO2=96.0 %, Resp=19 B/min 04:03 PM Recorded Pressure: LV, HR=82, Condition=Condition 1 (Left Ventricle) LV 94/17/19 04:03 PM Time: 15:48LOC: 4 = Oriented but drowsy kmavis 04:04 PM Time: 15:48 Patient comfortable and pain free: Yes kmavis 04:04 PM Recorded Pressure: LV, Ao, HR=82, Condition=Condition 1 (Left Ventricle) LV 91/13/14, (Aorta) Ao 62/14/49 04:04 PM Catheter removed kmavis 04:04 PM 5Fr Pigtail catheter inserted over the wire [facility] kmavis 04:04 PM Catheter crossed the aortic valve and was selectively placed in the left ventricle. Pressures recorded on pullback for left heart catheterization. kmavis 04:05 PM Catheter removed kmavis 04:05 PM Procedure completed at 16:05 10/27/2018 kmavis 04:05 PM Did you address ALMAZ flow and Dominance? Yes kmavis 04:07 PM Sign out completed: Radiation Dose 168.33 mGy, 2203.73 cGy/cm2 Fluoro Time: 1.1 Isovue 370 - 200ml contrast 48 ml given by Tami Lynn MD. Complications: None. The patient was discharged out of the laboratory associate in stable condition. Cardiac Rehab Consult needed: NoConfirmed administered medications: Yes kmavis 04:07 PM Isovue 370 - 200ml,1 Bottle(s) used. kmavis 04:07 PM HR=87 bpm, YXDM=399/85 mmhg, SpO2=97.0 %, Resp=6 B/min, EtCO2=38 mmHg 04:08 PM At 16:08 the ACT was 136 seconds. kmavis 04:08 PM Arterial sheath pulled, Mynx closure device used and was Successful [id number] S/N. kmavis 04:08 PM Estimated Blood Loss: minimal kmavis 04:09 PM Post Blood Pressure 116/85 kmavis 04:09 PM Information taught Cardiac Cath and Mynx kmavis 04:09 PM Education needs Procedure, Plan of Care, and Disease Process kmavis 04:09 PM Learning barriers :None kmavis 04:09 PM Education Methods Verbal kmavis 04:09 PM Education evaluation Able to repeat information kmavis 04:10 PM Site status No bleeding/hematoma - Rt Groin as reported by Duane Coppola RT (R) at 16:10 kmavis 04:10 PM Opsite applied kmavis 04:10 PM Plavix, Effient or Brilinta given No kmavis 04:10 PM Delay to floor No kmavis 04:11 PM Family placed in consult room. kmavis 04:11 PM Complications: None kmavis 04:12 PM HR=87 bpm, JBSS=780/75 mmhg, SpO2=98.0 %, Resp=17 B/min 04:16 PM Report given to Ai CALVERT Pt taken to 2A Room #16. 16:11 kmavis 04:17 PM Cardiothoracic surgeon consulted by physician kmavis 04:18 PM Lesion found in Proximal RCA. Pre Stenosis: 100 Pre ALMAZ Flow: kmavis 04:18 PM Lesion found in Distal LMCA. Pre Stenosis: 60 Pre ALMAZ Flow: kmavis 04:18 PM Lesion found in Proximal LAD. Pre Stenosis: 70 Pre ALMAZ Flow: kmavis 04:18 PM Lesion found in Mid LAD. Pre Stenosis: 100 Pre ALMAZ Flow: kmavis 04:18 PM Right Coronary, Right Posterior Descending Arteries with Right Posterolateral and Acute Marginal branches with 100 % stenosis. If graft is supplying this area, 0 % stenosis kmavis 04:18 PM Left Main Coronary Artery with 60% stenosis kmavis 04:19 PM Time: 16:04 Patient comfortable and pain free: Yes kmavis 04:19 PM Time: 16:03LOC: 4 = Oriented but drowsy kmavis 04:19 PM Proximal Left Anterior Descending Coronary Artery with 70% stenosis. If graft is supplying this territory, 0 % stenosis. kmavis 04:20 PM Mid/Distal Left Anterior Descending Coronary Artery and diagonal branches with 100% stenosis. If graft is supplying this area, 0 % stenosis kmavis Complications Complication None None Hemodynamics Pressures Site Systolic/A Wave Diastolic/V Wave Mean AO 95 76 86 AO 96 73 85 LV 94 17 19 LV 91 13 14 AO 62 14 49 Post Procedure Information Blood Pressure: 116/85 mmHg Post procedural instructions were given Surgery consult for CABG Closure Device Time Device Success/Fail 10/27/2018 4:20:00 PM MynxGrip Successful Site Checks Time Location Status Staff Sheath In? Note 04:10 PM Rt Groin No bleeding/hematoma Duane Coppola RT (R) Pulses Time Site Pre-Procedure Post-Procedure Note Bilateral DP & PT 2+ Bilateral radial 2+ Updated by Cande Santo RN on 10/27/2018 4:26:12 PM electronically signed on 10/27/2018 4:27:15 PM with status of Final
[2018-10-27] MEDS ORDERED: Perflutren Lipid Microsphere 1.3 ML in 0.9 % Sodium Chloride 8.7 ML IVP ONE (20:04)
[2018-10-27] MEDS ORDERED: traMADol 50 MG TABLET PO PRN (20:34)
--- NOTE | 2018-10-27 23:21 | Event Note ---
Date of Encounter: 10/27/18 Time of Encounter: 23:10 - Cardiology Event Note configuration technician reported possible LV thrombus on TTE. Review of TTE confirmed LV apical thrombus. Conveyed findings with bed nurse and confirmed heparin drip has been continued after [facility] today. Formal TTE report to follow am. C/w heparin drip, cardiology consult team will continue to follow.
--- NOTE | 2018-10-27 23:27 | Event Note ---
Date of Encounter: 10/27/18 Time of Encounter: 23:12 Alerted by charge nurse ENRIKE Cates that she had been contacted by Service Aide Dr. Dangelo regarding this pt. Dr. Dangelo had examined pts. Echocardiogram and pt. is positive for LV thrombus. Pt. is currently on heparin gtt. Went to discuss results with the patient who was sleeping. No complaint of SOB or CP on exam. Pt. has several questions which will need addressed by Cardiology and/or Cardiothoracic Surgery. VS at the time of assessment: BP 155/78, HR 80. Nurse instructed to monitor pt. very closely and notify me immediately of any adverse changes in the event that Cardiology intervention is required overnight.
[2018-10-28 01:23] LABS: Basophils % 0.5 %; Eosinophils # 0.1 K/mcL (0.0-0.6); Eosinophils % 0.8 %; Hematocrit 50.4 % (37.5-50.1); Hemoglobin 16.6 g/dL (12.9-16.9); Immature Granulocytes % 0.4 % (0-4); Lymphocytes # 1.6 K/mcL (0.6-4.6); Lymphocytes % 19.2 %; Mean Corpuscular HGB Conc 32.9 g/dL (31.6-35.5); Mean Corpuscular Hemoglobin 31.3 pg (28.0-33.3); Mean Corpuscular Volume 95.1 fL (83.0-100.0); Mean Platelet Volume 10.1 fL (9.4-12.4); Monocytes # 0.7 K/mcL (0.0-1.3); Monocytes % 8.1 %; Neutrophils # 5.9 K/mcL (1.6-8.9); Platelet Count 200 K/mcL (140-400); Red Cell Distribution Width 13.3 % (11.5-14.5)
[2018-10-28 01:41] LABS: BUN/Creatinine Ratio 14 (6-26); Blood Urea Nitrogen 12 mg/dL (6-20); Calcium 8.6 mg/dL (8.6-10.3); Carbon Dioxide 24 mEq/L (23-29); Chloride 107 mEq/L (98-107); Glucose 109 mg/dL (70-105); Osmolality,Calculated 282 (280-300); Potassium 4.3 mEq/L (3.5-5.1); Sodium 136 mEq/L (136-145); eGFR For Non-African Americans > 60 (> 60)
--- NOTE | 2018-10-28 08:04 | Internal Med Progress Note ---
Hospitalist Progress Note - Encounter Date of Encounter: 10/28/18 Time of Encounter: 07:59 - Subjective Interval History: Patient is a 48-year-old male with past medical history significant for ischemic cardiomyopathy with a history of MIs 6 with 6 stent placements and EF of 30- 35%, in addition to SVT hypertension and hyperlipidemia who presents as a transfer from [facility] in [facility] on 10/27/18 for ACS rule out. Patient reports a three-day history of exertional dyspnea with lightheadedness and dizziness. Patient was concerned after symptoms again were triggered after he walked up steps at work this morning. Patient was sent to [facility] for further evaluation where he was found to have a troponin of 1.34. Patient was subsequently transferred to [facility] for ACS as rule out. Patient was admitted on October 27 for non-STEMI, had left heart cath done on 10/27 showed severe two-vessel disease, cardiology recommended complicated PCI versus CABG. Echocardiogram showed a left atrial thrombosis, continue on heparin drip. Patient is doing okay denies chest pain shortness breath. Awaiting to talk to thoracic surgery - Exam Vitals: Temp Pulse Resp BP Pulse Ox 98.3 F 78 17 99/63 94 10/28/18 06:59 10/28/18 06:59 10/28/18 06:59 10/28/18 06:59 10/28/18 06:59 Exam: CONSTITUTIONAL: patient appears as an age appropriate male in no acute distress. EYES Clear sclerae, bilateral pupils are equal, reactive to light. EMOI. RESPIRATORY: No accessory muscle use, bilateral clear to auscultation, no wheezing, no crackles/rales. CARDIOVASCULAR: Regular heart rate, normal S1 and S2, no murmurs GASTROINTESTINAL: bowel sounds present, soft, no tenderness. MUSCULOSKELETAL: Joints in normal range of motion, no clubbing, no edema, no cyanosis. Bilateral peripheral pulses 2+. NEUROLOGIC: CN II to XII are grossly intact, no focal neurological deficit. DVT Prophylaxis: On heparin drip - Summary of Assessment and Plan Summary of Assessment and Plan: (1) Elevated troponin, NSTEMI Current Visit: No Status: Acute patient has CAD with multiple stents, LHC showed severe 2 -vessel disease, cardiology recommended CABG VS complicated PCI, pending decision troponin peaked 1.34. TTE showed LV thrombisis, continue heparin drip Cardiology consulted and appreciate recommendations. (2) Ischemic cardiomyopathy, chronic systolic CHF Current Visit: No Status: Chronic Assessment and plan: Patient has hx of MIs x6 and stent placement x6. ICD placed by Dr. Rojas in 07/2016. 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 Echo 07/08/17 EF 30-35%, regional wall motion abnormalities. Will continue home dose of aspirin, metoprolol, atorvastatin, Plavix metoprolol reduced to 12.5 mg BID due to low BP, hold imdur (3) SVT (supraventricular tachycardia) Current Visit: No Status: Acute Assessment and plan: Continue beta millicent (4) HTN (hypertension), BP is low, hold imdur, reduced BB Current Visit: No Status: Chronic Assessment and plan: Continue lisinopril and metoprolol Qualifiers: Hypertension type: essential hypertension Qualified Code(s): I10 - Essential (primary) hypertension (5) HLD (hyperlipidemia) Current Visit: No Status: Chronic Assessment and plan: Continue atorvastatin Qualifiers: Hyperlipidemia type: mixed hyperlipidemia Qualified Code(s): E78.2 - Mixed hyperlipidemia (6) Tobacco abuse, declined nicotine patch Current Visit: No Status: Chronic Assessment and plan: Patient is a 35 pack year smoker (7) DVT prophylaxis Current Visit: No Status: Acute Assessment and plan: On heparin drip as above Disposition: Pending final cardiology recommendation - Time Spent with Patient Total time spent is greater than 50% in coordination of care (as documented) at patient's floor/unit and/or counseling patient: 25 - 35 minutes Plan of Care Discussed with: patient Internal Medicine: Result - Labs CBC & Chem 7: 10/28/18 01:13 10/28/18 01:13 Labs: Short CBC 10/27/18 10/28/18 Range/Units 11:17 01:13 WBC 8.7 8.2 (4.3-11.1) K/mcL Hgb 15.7 16.6 (12.9-16.9) g/dL Hct 45.2 50.4 H (37.5-50.1) % Plt Count 198 200 (140-400) K/mcL Neutrophils # 5.9 (1.6-8.9) K/mcL BMP 10/28/18 01:13 Sodium 136 Potassium 4.3 Chloride 107 Carbon Dioxide 24 BUN 12 Creatinine 0.86 Glucose 109 H Calcium 8.6 Cardiac Enzymes 10/27/18 10/27/18 Range/Units 11:17 17:22 Troponin I 1.11 H* 1.25 H* (< 0.04) ng/mL - ABG Interpretation ABG results: PT/INR, D-dimer PT 10.6 Seconds (9.4-12.1) 10/27/18 11:17 Consult Discharge Plan - Plan Referrals: NONE,PCP [Primary Care Provider] -
[2018-10-28] MEDS: Aspirin 81 MG TAB.CHEW PO SCH (10:49)
[2018-10-28] MEDS: Metoprolol XL (24 HR) Succ 50 MG TAB.ER.24H PO SCH (10:49)
--- NOTE | 2018-10-28 10:59 | Cardiothoracic Consult Note ---
Date of Encounter: 10/28/18 Time of Encounter: 10:55 Assessment and Plan (1) CAD (coronary artery disease) Current Visit: No Status: Chronic The patient is a 48-year-old hypertensive man with hypercholesterolemia, and known CAD, and known cardiomyopathy. He developed dyspnea on exertion and lightheadedness 3 days prior to admission. He was admitted to [facility] for further cardiac workup given his presenting symptoms and known CAD. The transesophageal echocardiogram revealed an LVEF 25-30% and a 1 cm x 1.6 cm LV thrombus. The cardiac catheterization revealed severe 3 vessel CAD. He has been recommended for high risk CABG. The patient will require viability study to determine whether the anterior wall can be revascularized. In addition the LV thrombus will need to be treated with anticoagulation. The patient will be transferred to the [facility] for his viability study and treatment of the LV thrombus. Based upon the viability study the patient may be a candidate for CABG versus LVAD versus transplant in the future. The assessment and plan as outlined above was discussed with the pa gala and/or family members who expressed understanding and agreement. All questions were answered. Qualifiers: Coronary Disease-Associated Artery/Lesion type: [place] artery [place] vs. transplanted heart: [place] heart Associated angina: without angina Qualified Code(s): I25.10 - Atherosclerotic heart disease of [place] coronary artery without angina pectoris - History of Present Illness Consult date: 10/28/18 Requesting physician: Tami Lynn Consult reason: CABG evaluation Chief complaint: Dyspnea on exertion, dizziness History of present illness: Mr. Maddox is a 48 year old hypertensive man with hypercholesterolemia, known CAD and known cardiomyopathy. The patient's cardiac history dates back to 2006 which time he suffered a myocardial infarction and underwent PCI with stent placement. He states that he has had at least 6 stents placed during numerous hospitalizations for CAD/HI. His last cardiac intervention was not 2015, and he received both and ICD and repeat catheterization with LAD PCI. The patient had done well until 3 days prior to admission when he became symptomatic. He denies any substernal chest pain, arm pain, back pain, or neck pain. He underwent a transesophageal echocardiogram and was found to have an LVEF 25- 30% with a 1 cm x 1.6 cm LV thrombus. The entire anterior wall was akinetic. Cardiac catheterization revealed severe 3 vessel CAD. In particular the patient has a 60% distal left main lesion, a completely occluded mid LAD stent, and a completely occluded proximal RCA. I have been asked to evaluate the patient for possible high risk CABG. 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 Psychiatric history: no psych history - Past Surgical History Surgical History: angioplasty/stent, pacemaker/AICD Additional surgical history: 6 stents - Social History Smoking Status: Current every day smoker Smokeless Tobacco Status: No Alcohol use: occasionally Drug use: none Occupational status: employed Current living situation: Home - Independent Activity Level: Independent ambulation Recent Out of Country Travel Within the Last 8 Weeks: No Exposure or Possible Exposure to Illness During Travel: No - Family History Sister Family Member Ethnicity: Non- Living Status: Still Living Hx Family Cardiac Disorders: Yes (HTN) Mother Adopted: No Family Member Ethnicity: Non- Living Status: Still Living Hx Family Cardiac Disorders: Yes (CHF, bypass) Hx Family Respiratory Disorders: No Hx Family Cancer: No Hx Family GI Disorders: No Hx Family Endocrine Disorder: No Hx Family Neuromuscular Disorders: No Hx Family Neurologic Disorders: No Hx Family HEENT Disorders: No Hx Family Autoimmune Disorders: No Father Adopted: No Family Member Ethnicity: Non- Living Status: Still Living Hx Family Cardiac Disorders: Yes (Mild HI with stent x1) Hx Family Respiratory Disorders: No Hx Family Cancer: No Hx Family GI Disorders: No Hx Family Endocrine Disorder: No Hx Family Neuromuscular Disorders: No Hx Family Neurologic Disorders: No Hx Family HEENT Disorders: No Hx Family Autoimmune Disorders: No Medications and Allergies Nitroglycerin [Nitrostat] 0.4 mg SL Q5M PRN 01/08/16 [History] Aspirin 81 mg PO DAILY tab.chew 01/12/16 [Rx] Clopidogrel [Plavix] 75 mg PO DAILY #30 tablet 08/08/16 [Rx] Atorvastatin Calcium [Lipitor] 80 mg PO HS 07/08/17 [History] Isosorbide MONOnitrate (24 HR) [Imdur] 60 mg PO DAILY 07/26/17 [History] Lisinopril [Zestril] 5 mg PO DAILY 07/26/17 [History] Cyclobenzaprine HCl 5 mg PO HS PRN 10/27/18 [History] Diclofenac Sodium 2 - 4 gm TP QID PRN 10/27/18 [History] Gabapentin [Neurontin] 300 mg PO HS 10/27/18 [History] Metoprolol XL (24 HR) Succ [Toprol Xl] 75 mg PO DAILY 10/27/18 [History] Allergy/AdvReac Type Severity Reaction Status Date / Time Penicillins Allergy Anaphylaxis Verified 10/27/18 17:40 All Systems Review: The remainder of the systems were reviewed and are negative Physical Examination Vital Signs, Last 4 Hours Temp Pulse Resp BP Pulse Ox 10/28/18 06:59 98.3 F 78 17 99/63 94 General: Conversant, No Apparent Distress HEENT: Atraumatic, Normocephaly, Trachea midline Neck: No JVD, Normal carotid pulses Cardiac: Reg Rate and Rhythm, Normal S1 and S2, No Murmur Lungs: Normal Breath Sounds, No Wheeze, Rales, Rhonchi Neuro: Alert and responsive, No focal deficits noted, Motor nerves intact, Sensory nerves intact Vascular: Normal capillary refill Abdomen: Soft, Non-tender Skin: No rashes noted on visualized skin Musculoskeletal: No Chest Wall Tenderness Extremities: No Clubbing, No Cyanosis, No Edema, Normal Pulses Results 10/28/18 01:13 10/28/18 01:13 Lab Results, Last 24 hours 10/27/18 10/27/18 10/27/18 11:17 11:17 11:17 WBC 8.7 Hgb 15.7 Hct 45.2 Plt Count 198 INR 0.9 Sodium Potassium Chloride Carbon Dioxide BUN Creatinine Glucose Calcium Troponin I 1.11 H* 10/27/18 10/28/18 10/28/18 17:22 01:13 01:13 WBC 8.2 Hgb 16.6 Hct 50.4 H Plt Count 200 INR Sodium 136 Potassium 4.3 Chloride 107 Carbon Dioxide 24 BUN 12 Creatinine 0.86 Glucose 109 H Calcium 8.6 Troponin I 1.25 H* Consult Discharge Plan - Plan Referrals: Carlee Lamas CNP [Advanced Practice Nurse] - 11/05/18 3:00 pm (Please follow up as schedule...) NONE,PCP [Primary Care Provider] -
--- NOTE | 2018-10-28 11:14 | Cardiology Progress Note ---
Addendum entered and electronically signed by Chi Boss DO 10/28/18 13:40: I have personally performed a face to face evaluation on this patient. I have reviewed and agree with the care plan. History and Exam by me shows: Case discussed with Dr. Trent and Felipa. Agree with plan as described below. Severe CAD, ischemic cardiomyopathy, LV thrombus. Continue heparin drip. CT surgery here recommended tertiary center evaluation. Continue aspirin/statin/BB therpay. Consider ACEi prior to D/C. Euvolemic, not requiring diuretic therapy. Thanks, Chi Boss DO, [facility] Original Note: Date of Encounter: 10/28/18 Time of Encounter: 11:00 Assessment and Plan (1) NSTEMI (non-ST elevated myocardial infarction) Current Visit: Yes Status: Acute NSTEMI, peak troponin 1.25 History of CAD, prior TN, s/p PCI to LAD in 2016. Hx ICD (primary prevention) for ICMP. TTE 10/27/18: LVEF 30%, moderately dilated LV, mild LVDD, LV thrombus, normal RV structure and function, mild MR; mid inferior, basal inferior, apical anterior, mid anterior, basal anterior, mid inferior septal, basal inferior septal, apical lateral, mid anterior lateral, basal anterior lateral, mid anterior septal, mid inferior lateral, basal anterior septal and basal inferior lateral carter were hypokinetic; apex, apical inferior and apical septal carter were akinetic. [facility] 10/27/18: There is severe two vessel coronary artery disease; There is a previous stent in Mid LAD with severe in-stent stenosis that was not intervened on.which is occluded 100%, RCA mid is 100% occluded, Ostial LAD and distal Left main severe disease. Suggest patient have complex high risk PCI Vs Elective coronary artery bypass surgery after Viability. 60% dLMCA, 70% pLAD, 100% ISR mLAD, LCx free of disease, 100% pRCA CT surgery consulted and patient considered high risk for CABG, recommend viability study prior to proceeding with CABG vs. PCI. Also with new LV thrombus. Discussed with Dr. Boss, recommend inpatient transfer to tertiary care center; recommend [facility]. Will need viability study; of note has ICD that is NOT MRI safe. (Medtronic Evera XT VR ICD). Discussed with patient and who are both agreeable with transfer. Continue heparin gtt, asa, statin, and BB. Plavix on hold. (2) Ischemic cardiomyopathy Current Visit: Yes Status: Acute Longstanding hx of ICMP s/p ICD. 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 Appears euvolemic upon exam. Continue BB, ACEi. (3) LV (left ventricular) mural thrombus Current Visit: Yes Status: Acute Newly diagnosed LV thrombus on TTE. Started on IV heparin gtt. Will need Coumadin therapy in the outpatient setting with goal INR 2-3. To be started after testing/procedures completed. Continue IV heparin gtt for now. Discussion w patient/family: The assessment and plan as outlined above was discussed with the patient and/or family members who expressed understanding and agreement. All questions were answered. Thank you for involving us in the care of your patient. Please call with any questions. The patient will be discussed and reviewed with Dr. Boss; changes to be made accordingly. Subjective Principal diagnosis: NSTEMI Interval history: Seen and examined. Plan of care discussed with patient. No chest pain/discomfort overnight. Objective Vital Signs, Last 4 Hours Temp Pulse Resp BP Pulse Ox 10/28/18 11:05 98.5 F 75 18 93/56 96 General: Conversant, No Apparent Distress HEENT: Atraumatic, Normocephaly Cardiac: Reg Rate and Rhythm, Normal S1 and S2 Lungs: Normal Breath Sounds Neuro: Alert and responsive Abdomen: Soft Skin: No rashes noted on visualized skin Musculoskeletal: No Chest Wall Tenderness Extremities: No Edema, Normal Pulses Results 10/28/18 01:13 10/28/18 01:13 Lab Results 10/27/18 10/27/18 10/27/18 11:17 11:17 11:17 WBC 8.7 Hgb 15.7 Hct 45.2 Plt Count 198 INR 0.9 Sodium Potassium Chloride Carbon Dioxide BUN Creatinine Glucose Calcium Troponin I 1.11 H* 10/27/18 10/28/18 10/28/18 17:22 01:13 01:13 WBC 8.2 Hgb 16.6 Hct 50.4 H Plt Count 200 INR Sodium 136 Potassium 4.3 Chloride 107 Carbon Dioxide 24 BUN 12 Creatinine 0.86 Glucose 109 H Calcium 8.6 Troponin I 1.25 H* Active Medications Aspirin (Aspirin) 81 mg PO DAILY [facility] Stop: 04/28/19 14:31 Last Admin: 10/28/18 10:49 Dose: 81 mg Atorvastatin Calcium (Lipitor) 80 mg PO HS SEDA Stop: 04/28/19 21:01 Last Admin: 10/27/18 20:51 Dose: 80 mg Clopidogrel Bisulfate (Plavix) 75 mg PO DAILY [facility] Stop: 04/28/19 14:31 Last Admin: 10/27/18 14:31 Dose: 75 mg Cyclobenzaprine HCl (Flexeril) 5 mg PO HS PRN PRN Reason: Muscle Spasm Gabapentin (Neurontin) 300 mg PO HS [facility] Stop: 04/29/19 21:01 Heparin Sodium (Porcine) (Heparin) 4,000 unit IVP Q6HR PRN PRN Reason: SEE COMMENTS Stop: 04/28/19 10:40 Heparin Sodium (Porcine) (Heparin) 2,000 unit IVP Q6H PRN PRN Reason: SEE COMMENTS Stop: 04/28/19 10:40 Last Admin: 10/28/18 02:03 Dose: 2,000 unit Heparin Sodium/Dextrose (Heparin 25,000 Unit/500 Ml D5w) 25,000 unit in 500 mls @ 17.832 mls/hr IVC .Q24H [facility]; Protocol Stop: 04/28/19 10:46 Last Titration: 10/28/18 08:49 Dose: 14 unit/kg/hr, 20.8 mls/hr Lisinopril (Zestril) 5 mg PO DAILY [facility]; Protocol Stop: 04/29/19 09:01 Last Admin: 10/28/18 08:51 Dose: Not Given Metoprolol Succinate (Toprol Xl) 75 mg PO DAILY [facility] Stop: 04/28/19 14:31 Last Admin: 10/28/18 10:49 Dose: 75 mg Naloxone HCl (Narcan) 0.4 mg IVP Q2MIN PRN PRN Reason: SEE COMMENTS Stop: 04/28/19 11:16 Nitroglycerin (Nitroglycerin) 0.4 mg SL Q5M PRN PRN Reason: Chest Pain Stop: 04/28/19 11:19 Tramadol HCl (Ultram) 100 mg PO TID PRN PRN Reason: Pain Stop: 04/28/19 20:35 Last Admin: 10/27/18 20:52 Dose: 100 mg - Imaging and Cardiology Echo: report reviewed Cardiac cath: report reviewed - EKG Interpretation EKG results cardiology: personally reviewed Consult Discharge Plan - Plan Referrals: Carlee Lamas CNP [Advanced Practice Nurse] - 11/05/18 3:00 pm (Please follow up as schedule...) NONE,PCP [Primary Care Provider] -
[2018-10-28 15:23] VITALS: BP 108/74
--- NOTE | 2018-10-28 16:35 | Discharge Summary ---
Orders not resulted at time of discharge: Pending orders 10/29/18 14:35 Heparin anti-factor XA UFH [COAG] Timed Date of Encounter: 10/28/18 Time of Encounter: 16:33 - Discharge Diagnosis (1) Ischemic cardiomyopathy Priority: Secondary Status: Chronic (2) Tobacco abuse Priority: Secondary Status: Chronic (3) CAD (coronary artery disease) Priority: Secondary Status: Chronic Qualifiers: Coronary Disease-Associated Artery/Lesion type: [place] artery [place] vs. transplanted heart: [place] heart Associated angina: without angina Qualified Code(s): I25.10 - Atherosclerotic heart disease of [place] coronary artery without angina pectoris (4) S/P ICD (internal cardiac defibrillator) procedure Priority: Secondary Status: Chronic (5) HTN (hypertension) Priority: Secondary Status: Chronic Qualifiers: Hypertension type: essential hypertension Qualified Code(s): I10 - Essential (primary) hypertension (6) HLD (hyperlipidemia) Priority: Secondary Status: Chronic Qualifiers: Hyperlipidemia type: mixed hyperlipidemia Qualified Code(s): E78.2 - Mixed hyperlipidemia (7) NSTEMI (non-ST elevated myocardial infarction) Priority: Primary Status: Acute Hospital course: Patient is a 48-year-old male with past medical history significant for ischemic cardiomyopathy with a history of MIs 6 with 6 stent placements and EF of 30-35%, in addition to SVT hypertension and hyperlipidemia who presents as a transfer from [facility] in [facility] on 10/27/18 for ACS rule out. Patient reports a three-day history of exertional dyspnea with lightheadedness and dizziness. Patient was concerned after symptoms again were triggered after he walked up steps at work this morning. Patient was sent to [facility] for further evaluation where he was found to have a troponin of 1.34. Patient was subsequently transferred to [facility] for ACS as rule out. Patient was admitted on October 27 for non-STEMI, had left heart cath done on 10/27 showed severe 2-vessel disease, cardiology recommended complicated PCI versus CABG. Echocardiogram showed LV thrombosis with EF 30%, continue on heparin drip. CT surgery consulted and patient considered high risk for CABG, recommend viability study prior to proceeding with CABG vs. PCI. Also with new LV thrombus. Cardiology and CTS recommend inpatient transfer to tertiary care center; recommend [facility]. Will need viability study; of note has ICD that is NOT MRI safe. (Medtronic Evera XT VR ICD). Discussed with patient and who are both agreeable with transfer. I called [facility], [facility] Continue heparin gtt, asa, statin, and BB. Plavix on hold. (1) Elevated troponin, NSTEMI Current Visit: No Status: Acute patient has CAD with multiple stents, LHC showed severe 2 -vessel disease, cardiology recommended CABG VS complicated PCI, pending decision troponin peaked 1.34. TTE showed LV thrombisis, continue heparin drip Cardiology and CTS consulted and appreciate recommendations. I called [facility] transfer center, Dr Mcneill accepted the transfer to [facility], await for bed available Continue heparin gtt, asa, statin, and BB. Plavix on hold. (2) Ischemic cardiomyopathy, chronic systolic CHF Current Visit: No Status: Chronic Assessment and plan: Patient has hx of MIs x6 and stent placement x6. ICD placed by Dr. Rojas in 07/2016. 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 Echo 10/27/2018 EF 30%, LV thrombosis Will continue home dose of aspirin, metoprolol, atorvastatin, Plavix , hold imdur (3) SVT (supraventricular tachycardia) Current Visit: No Status: Acute Assessment and plan: Continue beta millicent (4) HTN (hypertension), BP is low, hold imdur, reduced BB Current Visit: No Status: Chronic Assessment and plan: Continue lisinopril and metoprolol Qualifiers: Hypertension type: essential hypertension Qualified Code(s): I10 - Essential (primary) hypertension (5) HLD (hyperlipidemia) Current Visit: No Status: Chronic Assessment and plan: Continue atorvastatin Qualifiers: Hyperlipidemia type: mixed hyperlipidemia Qualified Code(s): E78.2 - Mixed hyperlipidemia (6) Tobacco abuse, declined nicotine patch Current Visit: No Status: Chronic Assessment and plan: Patient is a 35 pack year smoker (7) DVT prophylaxis Current Visit: No Status: Acute Assessment and plan: On heparin drip as above Discharge discussed with: patient Time spent discussing smoking cessation with patient: more than 10 minutes - Time Spent with Patient Total time spent providing and/or coordinating discharge services: Greater than 30 minutes - Discharge Medications Home Medications: Nitroglycerin [Nitrostat] 0.4 mg SL Q5M PRN 01/08/16 [History] Aspirin 81 mg PO DAILY tab.chew 01/12/16 [Rx] Clopidogrel [Plavix] 75 mg PO DAILY #30 tablet 08/08/16 [Rx] Atorvastatin Calcium [Lipitor] 80 mg PO HS 07/08/17 [History] Isosorbide MONOnitrate (24 HR) [Imdur] 60 mg PO DAILY 07/26/17 [History] Lisinopril [Zestril] 5 mg PO DAILY 07/26/17 [History] Cyclobenzaprine HCl 5 mg PO HS PRN 10/27/18 [History] Diclofenac Sodium 2 - 4 gm TP QID PRN 10/27/18 [History] Gabapentin [Neurontin] 300 mg PO HS 10/27/18 [History] Metoprolol XL (24 HR) Succ [Toprol Xl] 75 mg PO DAILY 10/27/18 [History] Allergies/Adverse Reactions: Allergy/AdvReac Type Severity Reaction Status Date / Time Penicillins Allergy Anaphylaxis Verified 10/27/18 17:40 Date of admission: 10/27/18 20:51 Primary care physician: PCP NONE Consults: 10/27/18 10:35 Consult to Cardiology [CONS] Routine Comment: Consulting Provider: Cardiology [place] Reason for Consult: elevated troponin; chest pain; Call Completed: Yes 10/28/18 08:16 Consult to Cardiothoracic Surgery [CONS] Routine Consulting Provider: Cardiothoracic Surgery [place] Reason for Consult: CABG vs. high risk PCI Call Completed: Yes 10/28/18 08:17 Consult to Cardiac Rehabilitation-Phase1 [CONS] Routine Comment: Reason for Consult: NSTEMI Call Completed: No - Constitutional Vitals: Temp Pulse Resp BP Pulse Ox 97.8 F 83 17 108/74 96 10/28/18 15:21 10/28/18 15:21 10/28/18 15:21 10/28/18 15:21 10/28/18 15:21 General appearance: Present: A&O X 3, no acute distress Exam: CONSTITUTIONAL: patient appears as an age appropriate male in no acute distress. EYES Clear sclerae, bilateral pupils are equal, reactive to light. EMOI. RESPIRATORY: No accessory muscle use, bilateral clear to auscultation, no wheezing, no crackles/rales. CARDIOVASCULAR: Regular heart rate, normal S1 and S2, no murmurs GASTROINTESTINAL: bowel sounds present, soft, no tenderness. MUSCULOSKELETAL: Joints in normal range of motion, no clubbing, no edema, no cyanosis. Bilateral peripheral pulses 2+. NEUROLOGIC: CN II to XII are grossly intact, no focal neurological deficit. - Patient Status Disposition: Transfer Other Condition: Good Functional capacity at discharge: independent ambulation Overall status at discharge: patient is back to baseline - Discharge Instructions Follow Up With: Carlee Lamas [employer] [Advanced Practice Nurse] - 11/05/18 3:00 pm (Please follow up as schedule...) NONE,PCP [Primary Care Provider] - - Diet and Activity Activity: increase activity as tolerated Diet: low fat, low cholesterol
[2018-10-28] MEDS: Heparin 25,000 UNIT/500 ML D5W 25,000 UNIT/500 ML BAG IVC SCH (17:22)
[2018-10-28] MEDS ORDERED: Gabapentin 300 MG CAPSULE PO SCH (21:00)
== END 2018-10-28 19:28 | disposition other institution (70) | DRG 281 ==
LOC: 2ANU → SUATTDRO 20:51
PROVIDERS: ADMIT Internal Medicine; ATTEND Hospitalist

== ENCOUNTER 2020-10-22 06:42 | Observation (INO) ==
[2020-10-22] MEDS ORDERED: Naloxone 0.4 MG/ML INJ IVP PRN (09:32)
[2020-10-22] MEDS ORDERED: Ondansetron 4 MG/2 ML VIAL IVP PRN (09:32)
[2020-10-22] MEDS ORDERED: Perflutren Lipid Microsphere 1.3 ML in 0.9 % Sodium Chloride 8.7 ML IVP PRN (10:18)
[2020-10-23] MEDS: *HR* Amiodarone 200 MG TABLET PO SCH ×2 (01:28→09:00)
[2020-10-23] MEDS: Sacubitril/Valsartan 24/26 MG 1 TABLET PO SCH ×2 (01:28→08:59)
[2020-10-23 05:07] LABS: INR 3.6; Prothrombin Time 39.8 Seconds (9.4-12.1)
[2020-10-23 05:11] LABS: BUN/Creatinine Ratio 15 (6-26); Blood Urea Nitrogen 18 mg/dL (6-20); Calcium 9.2 mg/dL (8.6-10.3); Carbon Dioxide 29 mEq/L (23-29); Chloride 102 mEq/L (98-107); Glucose 89 mg/dL (70-105); Osmolality,Calculated 285 (280-300); Potassium 3.9 mEq/L (3.5-5.1); Sodium 137 mEq/L (136-145); eGFR For African Americans > 60 (> 60); eGFR For Non-African Americans > 60 (> 60)
[2020-10-23] MEDS ORDERED: Spironolactone 25 MG TABLET PO SCH (09:00)
[2020-10-23] MEDS ORDERED: Metoprolol XL (24 HR) Succ 50 MG TAB.ER.24H PO SCH (09:00)
[2020-10-23 10:29] VITALS: BP 103/72
== END 2020-10-23 13:45 | disposition home or self-care (01) ==
LOC: 3BNU → SUATTDRO 09:47
PROVIDERS: ADMIT Student in an Organized Health Care Education/Training Program; ATTEND Pharmacist